=== PATIENT | female | born 1970 | race Caucasian/White ===

== ENCOUNTER → 2017-10-31 06:56 | Outpatient (CLI) | payer OTHER, SELFPAY ==
[2015-06-20 13:27] VITALS: BP 106/67
[2017-10-31 15:06] VITALS: BP 117/73; BMI 29.4
== END ==
PROVIDERS: Family Provider Family Medicine; PCP Family Medicine; Visit Provider Nurse Practitioner Women's Health
DX: Z12.4 Encounter for screening for malignant neoplasm of cervix (principal)

== ENCOUNTER 2017-12-04 17:00 | Emergency (ER) | payer OTHER, SELFPAY ==
[2017-12-04 17:01] VITALS: BP 139/100; PULSE 82; RESP 16; TEMP 36.2; O2SAT 96; BMI 30.1
--- NOTE | 2017-12-04 17:12 | CT_ITS ---
STUDY: CT ABDOMEN AND PELVIS WITHOUT CONTRAST REASON FOR EXAM: Female, 47 years old. Right flank pain RADIATION DOSAGE (If Supplied By Facility): CTDIvol = ( 9.89 ) mGy, DLP = ( 501.72 ) mGycm TECHNIQUE: Transaxial images were obtained from the dome of the diaphragm to the symphysis pubis without oral contrast, and without intravenous contrast. Sagittal and coronal images were reconstructed. Individualized dose optimization techniques were used for this CT. COMPARISON: None. FINDINGS: The visualized lung bases are unremarkable. The visualized portions of the heart are within normal limits. Normal liver. Normal gallbladder and extrahepatic biliary system. Normal spleen. Normal pancreas. Normal bilateral adrenal glands. There is a mild right hydronephrosis and hydroureter to the level of the UVJ. An obstructing calculus was not identified. There is a nonobstructing 3 mm calculus of the left kidney. Normal visualized stomach. Normal small intestine. Normal colon. The appendix is visualized and appears normal. There is a small calcified plaque of the abdominal aorta. Normal inferior vena cava. Normal retroperitoneum. Normal urinary bladder. An IUD is seen in the uterus. Adnexal structures are unremarkable. There is a small umbilical hernia containing fat. There is a bilateral L5 spondylolysis with no associated spondylolisthesis. CT/Abdomen/Pelvis without Cont IMPRESSION: 1. Mild right hydronephrosis and hydroureter to the level of the UVJ. An obstructing calculus was not identified. 2. Nonobstructing 3 mm calculus of the left kidney. 3. IUD present in the uterus. 4. Small fat-containing umbilical hernia. 5. Bilateral L5 spondylolysis with no associated spondylolisthesis. Electronically Signed: Alton Tanner MD at 18:48 EDT , Service support ,
[2017-12-04] MEDS: 0.9% Normal Saline 1,000 ML 250 ML IV (17:20)
[2017-12-04] MEDS: Ketorolac 30 MG/ML Syringe IV (17:24)
[2017-12-04] MEDS: Ondansetron 4 MG/2 ML Vial IV (17:24)
--- NOTE | 2017-12-04 17:37 | ED.DCSUM_ITS ---
- ER Visit Summary Date of Service: 12/04/17 Chief Complaint: Acute flank pain with urgency that started 2 hours prior to presentation. History of Present Illness: The patient is a 47 F Zentz with acute flank pain and urgency. Started 2 hours prior to presentation. She has pain with nausea. She cannot find a position of comfort. She has no similar past medical history. There is a family history of renal/ureterolithiasis. She denies history of renal or ureterolithiasis. She has no other complaints please read written note for complete detail Physical Examination: Patient appears uncomfortable. Blood pressure elevated 139/100. Head is atraumatic normocephalic. Pupils are equal round reactive. Extraocular muscles are intact. TMs are pearly white with landmarks noted. Nares patent with no drainage. Posterior pharynx without erythema or exudate. Uvula is midline. There is no dysphonia or dysphasia. Trachea is midline. There is no stridor with auscultation of the neck. Heart is regular without murmur, gallop or rub. S1 and S2 are normal. Lungs are clear to auscultation with good movement of air bilaterally. Abdomen is soft and nontender. There is no guarding or peritoneal findings. There is no palpable pulsatile mass. There is no abdominal bruit. Leo sign is negative. Negative Rovsing sign. There is no evidence of inguinal or umbilical hernia. Test Results: Urine is remarkable for 50-100 WBCs with no bacteria. CT is remarkable for hydroureter and nephrosis with no visualized stone. There is nonobstructing calculi on the left. Emergency Department Course and Treatment: IV was established and she was treated with 30 mg Toradol and [address] of the abdomen and pelvis without contrast was ordered as well as UA. Treatment Plan: Was reassessed and is pain-free. Since she has pyuria urine culture was sent and she received IV Rocephin and prescription for ciprofloxacin , [place], and told to take either 4 ibuprofen every 8 hours or 2 Aleve every 12 hours. She was referred to Dr. Kenneth Garcia. Disposition: Discharged home in stable and improved condition Impression: 1. Right flank pain secondary to nonvisualized ureteral calculus with hydroureter and nephrosis 2. Pyuria 3. Left renal calculus This note was generated with [employer] software. It may contain incorrect words, spelling, and punctuation that were not noted in review of the chart prior to signing ED Disposition - Plan for ED Patient: Disposition: Home or Assisted Living Chief Complaint: Flank Pain Instructions: ED Stone Renal W Colic Prescriptions: Hydrocodone Bitart/Apap 5-325 [[place] 5MG-325MG] 1 tablet PO Q6H PRN PRN 5 Days # 20 tablet PRN Reason: Pain Ciprofloxacin [Cipro] 500 mg PO BID #14 tab Referrals: Eddie Hernandez MD [Primary Care Provider] - Dewayne Garcia MD [STAFF PHYSICIAN] - 1 Week Additional Instructions: Your prescriptions were electronically transmitted to [facility] pharmacy
[2017-12-04 18:15] LABS: Bacteria 0 SEEN /hpf (None Seen); Mucous, Urine 0 SEEN /hpf (<or=2+); Red Blood Cells-Urine 0 SEEN /hpf (0-5)
[2017-12-04 18:16] LABS: Color, Urine Yellow (Yellow); Glucose, Dipstick Normal (Normal); Ketone-Dipstick Negative (Negative); Leukocyte Esterase-Dipstick 500 /ul (Negative); Nitrite-Dipstick Negative (Negative); Occult Blood-Urine 250 /ul (Negative); Protein-Dipstick 30 mg/dl (Negative); Specific Gravity, Urine 1.005 (1.002-1.030); Urine Bilirubin Dipstick Negative (Negative); Urine Clarity Sl. Cloudy (Clear); Urine Urobilinogen Normal (Normal)
[2017-12-04 18:23] LABS: Squamous Epithelial Cells - UA 0-5 SEEN /hpf (5-10); White Blood Cells 50-100 SEEN /hpf (0-5)
[2017-12-04 19:10] LABS: Absolute Lymphocyte Count 2.64 X10^3/ul (0.83-4.51); Absolute Neutrophil Count 11.2 X10^3/uL (2.0-7.7); Basophil# 0.04 X10^3/uL; Basophil% 0.3 % (0-1); Eosinophil# 0.13 X10^3/uL; Eosinophils% 0.9 % (0-5); Hematocrit 40.5 % (37-47); Hemoglobin 13.2 g/dl (12.0-15.0); Lymphocyte # 2.64 X10^3/ul (4.0); Lymphocyte % 17.7 % (19-41); Mean Corp Hgb Conc 32.6 g/gl (32-36); Mean Corpuscular Hgb 28.8 pg (27.0-32.0); Mean Corpuscular Volume 88.4 fL (81-99); Mean Platelet Vol. 10.7 fl (6.2-12.0); Monocyte# 0.88 X10^3/uL; Monocyte% 5.9 % (0-10); Neutrophil # 11.19 X10^3/uL (2.7-7.7); Neutrophil % 74.8 % (47-70); POSITIVE COUNT NO; POSITIVE DIFFERENTIAL NO; POSITIVE MORPHOLOGY NO; Platelet Count 359 K/mm3 (150-450); RBC Distribution Width CV 13.3 % (11.6-14.6); RBC Distribution Width SD 42.9 fl (35.1-43.9); Red Blood Count 4.58 M/mm3 (4.2-5.4); White Blood Count 14.9 K/mm3 (4.4-11.0)
[2017-12-04 20:19] VITALS: BP 132/78; PULSE 67; RESP 16; O2SAT 97
== END 2017-12-04 20:19 | disposition home or self-care (01) ==
PROVIDERS: Emergency Provider Emergency Medicine; Family Provider Family Medicine; PCP Family Medicine
DX: R10.9 Unspecified abdominal pain (principal); N13.4 Hydroureter; N20.2 Calculus of kidney with calculus of ureter; N04.9 Nephrotic syndrome with unspecified morphologic changes; N39.0 Urinary tract infection, site not specified
CPT/HCPCS: 74176; 81001; 85025; 87086; 87088; 87186; 96361; 96365; 96375; 99283; J7050; J0696; J2405

== ENCOUNTER → 2018-01-20 08:45 | Outpatient (CLI) | payer OTHER, SELFPAY ==
--- NOTE | 2018-01-20 08:47 | BI_ITS ---
MAMMOGRAPHY - BILATERAL SCREENING 3-D THEA SYNTHESIS REASON FOR EXAM: Female, 47 years old. Bilateral Screening 3-D tomosynthesis PERTINENT HISTORY: Family history with maternal aunt diagnosed at age 40 with breast cancer. No previous surgeries. She has gained weight since previous exam. TECHNIQUE: 2-D mammograms and 3-D Thea synthesis of the breast (s) were performed. CAD was performed. COMPARISON: March 05, 2014. FINDINGS: The breast composition is composed of scattered fibroglandular density. I now see an approximately 1 cm, partially ill-defined nodule within the anterior/subareolar left breast at the approximate 3:00 position located approximately 2 cm from the nipple base. Recommend further evaluation/characterization with sonography. There are no suspicious clustered pleomorphic calcifications. There are no secondary signs of malignancy. BI/SCREENING MAMM (CAD), BILAT IMPRESSION: Anterior left breast nodule as above. Sonographic characterization recommended. ASSESSMENT CATEGORY: BIRADS Category 0: Incomplete. Need additional imaging evaluation as above. A letter regarding these results will be sent to the patient by the facility within 30 days. FOLLOW UP RECOMMENDATION: Ultrasound Recommended. (I) Approximately 10% of breast cancers are not detected by mammography. A normal mammogram should not delay biopsy of a clinically suspicious abnormality. Electronically Signed: Ross Holly MD at 10:30 EDT , Service support ,
== END ==
PROVIDERS: Family Provider Family Medicine; PCP Family Medicine; Visit Provider Nurse Practitioner Women's Health
DX: Z12.31 Encounter for screening mammogram for malignant neoplasm of breast (principal)
CPT/HCPCS: 77063; 77067

== ENCOUNTER → 2018-01-23 07:45 | Outpatient (CLI) | payer OTHER, SELFPAY ==
--- NOTE | 2018-01-23 07:48 | US_ITS ---
STUDY: ULTRASOUND BREAST - LEFT REASON FOR EXAM: Female, 47 years old. Abnormal mammogram TECHNIQUE: Axial and longitudinal images of the LEFT breast were performed with a high resolution ultrasound transducer. COMPARISON: Mammogram from 01/20/2018 FINDINGS: LEFT Breast: At the 3:00 position, 1 cm from the nipple is a solid 0.9 x 1.0 x 0.6 and meter solid nonshadowing nonvascular well-defined nodule. This likely represents a fibroadenoma. Additionally, there is also a 0.4 x 0.4 x 0.2 cm cyst nearby. There is no architectural distortion. US/Breast Limited Unilateral IMPRESSION: Likely benign 1 cm fibroadenoma and benign simple cyst both located at 3:00, 1 cm from the nipple. ASSESSMENT CATEGORY: BIRADS Category 2: Benign. A letter regarding these results will be sent to the patient by the facility within 30 days. Electronically Signed: Mack Oliver MD at 8:47 EDT , Service support ,
== END ==
PROVIDERS: Family Provider Family Medicine; PCP Family Medicine; Visit Provider Nurse Practitioner Women's Health
DX: R92.8 Other abnormal and inconclusive findings on diagnostic imaging of breast (principal)
CPT/HCPCS: 76642

== ENCOUNTER → 2018-08-15 11:36 | Outpatient (CLI) | payer OTHER, SELFPAY ==
[2018-08-15 11:36] VITALS: BMI 29.4
[2018-08-15 14:35] LABS: Vitamin B12 604 pg/mL (211-911); Vitamin D,25 Hydroxy 21.9 ng/mL (29.95-100.01)
[2018-08-15 14:52] LABS: Anion Gap 11 (5-15); BUN 11 mg/dL (7-18); Calcium,Total 9.3 mg/dL (8.5-10.1); Chloride 102 mmol/L (98-107); Cholesterol 190 mg/dL (200); Creatinine, Serum 0.84 mg/dL (0.55-1.02); EST Glomerular Filtration Rate 77 mL/min (>60); Est Glom Filt Rate - Afr Amer 93 mL/min (>60); Free T3 2.7 pg/mL (2.18-3.98); Glucose 76 mg/dL (74-106); High Density Lipoprotein 46 mg/dL; Potassium 3.9 mmol/L (3.5-5.1); Sodium Level 139 mmol/L (136-145); T4 Free Direct 0.83 ng/dL (0.76-1.46); Thyroid Stim Hormone (TSH) 1.88 uIU/mL (0.358-3.74); Triglycerides 151 mg/dL; Very Low Density Lipoprotein 30 mg/dL (5-40)
== END ==
PROVIDERS: Family Provider Family Medicine; PCP Family Medicine; Visit Provider Family Medicine
DX: E55.9 Vitamin D deficiency, unspecified (principal); Z13.1 Encounter for screening for diabetes mellitus; E05.90 Thyrotoxicosis, unspecified without thyrotoxic crisis or storm; Z13.220 Encounter for screening for lipoid disorders; R53.83 Other fatigue
CPT/HCPCS: 36415; 80048; 80061; 82306; 82607; 84439; 84443; 84481

== ENCOUNTER → 2019-01-25 | Outpatient (CLI) | payer OTHER, SELFPAY ==
[2018-09-20 17:13] VITALS: BMI 29.4
== END | disposition home or self-care (01) ==
PROVIDERS: Family Provider Family Medicine; PCP Family Medicine; Referring Provider Family Medicine; Visit Provider Family Medicine
DX: R19.7 Diarrhea, unspecified (principal)
CPT/HCPCS: 80053; 84443; 85025; 85652

== ENCOUNTER → 2019-01-26 | Outpatient (CLI) | payer OTHER, SELFPAY ==
[2018-09-20 17:13] VITALS: BMI 29.4
== END | disposition home or self-care (01) ==
LOC: LABSPEC 12:39
PROVIDERS: Family Provider Family Medicine; PCP Family Medicine; Referring Provider Family Medicine; Visit Provider Family Medicine
DX: R19.7 Diarrhea, unspecified (principal)
CPT/HCPCS: 82274; 83630; 87177; 87209; 87493

== ENCOUNTER → 2019-04-20 | Outpatient (CLI) | payer OTHER, SELFPAY ==
[2018-09-20 17:13] VITALS: BMI 29.4
== END | disposition home or self-care (01) ==
LOC: LAB.FUTURE 16:50
PROVIDERS: Family Provider Family Medicine; PCP Family Medicine; Referring Provider Family Medicine; Visit Provider Family Medicine
DX: R19.7 Diarrhea, unspecified (principal)
CPT/HCPCS: 87493

== ENCOUNTER → 2019-10-15 16:30 | Outpatient (CLI) | payer OTHER, SELFPAY ==
[2018-09-20 17:13] VITALS: BMI 29.4
[2019-10-15 17:55] LABS: Vitamin D,25 Hydroxy 16.1 ng/mL (29.95-100.01)
[2019-10-15 18:06] LABS: Anion Gap 4 (5-15); BUN 17 mg/dL (7-18); BUN/Creat Ratio 18.9 RATIO (10-20); Calcium,Total 9.9 mg/dL (8.5-10.1); Chloride 103 mmol/L (98-107); Cholesterol 234 mg/dL (200); EST Glomerular Filtration Rate 71 mL/min (>60); Est Glom Filt Rate - Afr Amer 86 mL/min (>60); Glucose 84 mg/dL (74-106); High Density Lipoprotein 54 mg/dL; Potassium 3.9 mmol/L (3.5-5.1); Sodium Level 137 mmol/L (136-145); Thyroid Stim Hormone (TSH) 1.82 uIU/mL (0.358-3.74); Triglycerides 194 mg/dL; Very Low Density Lipoprotein 39 mg/dL (5-40)
== END ==
PROVIDERS: PCP Family Medicine; Visit Provider Family Medicine
DX: E03.9 Hypothyroidism, unspecified (principal); E55.9 Vitamin D deficiency, unspecified; Z13.1 Encounter for screening for diabetes mellitus; Z13.220 Encounter for screening for lipoid disorders
CPT/HCPCS: 36415; 80048; 80061; 82306; 84443

== ENCOUNTER → 2019-10-25 16:43 | Outpatient (CLI) | payer OTHER, SELFPAY ==
[2018-09-20 17:13] VITALS: BMI 29.4
--- NOTE | 2019-10-25 16:45 | BI_ITS ---
MAMMOGRAPHY - BILATERAL SCREENING REASON FOR EXAM: Female, 48 years old. Routine annual screening examination. PERTINENT HISTORY: Aunt with breast cancer. TECHNIQUE: Digital bilateral breast thea (3D mammographic acquisition) in the CC and MLO projections. 2-D mediolateral oblique (MLO) and craniocaudad (CC) views of both breasts were obtained. CAD: Full Field Digital Mammography with Computer Added Detection was performed. COMPARISON: Comparison is made with prior examination dated January 20, 2018 and March 05, 2014. FINDINGS: Breast Composition: The breasts are heterogeneously dense, which may obscure small masses. There are no dominant masses or suspicious calcifications. Stable 9 mm x 6.7 mm well-defined nodule in the anterior lateral retroareolar region of the left breast. This is unchanged. No other significant abnormalities are identified. There has been no significant change since the prior study. BI/SCREEN MAMM (CAD) W/THEA BILAT IMPRESSION: Stable bilateral screening mammogram. Yearly follow-up mammogram recommended. (A) ASSESSMENT CATEGORY: BIRADS Category 2: Benign. A letter regarding these results will be sent to the patient by the facility within 30 days. Approximately 10% of breast cancers are not detected by mammography. A normal mammogram should not delay biopsy of a clinically suspicious abnormality. [id number] Electronically Signed: Vik Kingston, at 15:01 EST , Service support ,
== END ==
PROVIDERS: PCP Family Medicine; Referring Provider Family Medicine; Visit Provider Family Medicine
DX: Z12.31 Encounter for screening mammogram for malignant neoplasm of breast (principal); Z80.3 Family history of malignant neoplasm of breast
CPT/HCPCS: 77063; 77067

== ENCOUNTER → 2020-04-19 09:42 | Outpatient (CLI) | payer OTHER, SELFPAY ==
[2018-09-20 17:13] VITALS: BMI 29.4
[2020-04-19 10:34] LABS: Vitamin D,25 Hydroxy 68.4 ng/mL
== END ==
PROVIDERS: PCP Family Medicine; Referring Provider Family Medicine; Visit Provider Family Medicine
DX: E55.9 Vitamin D deficiency, unspecified (principal)
CPT/HCPCS: 36415; 82306

== ENCOUNTER → 2020-11-10 12:59 | Outpatient (CLI) | payer OTHER, SELFPAY ==
[2020-09-08 11:08] VITALS: BMI 34.2
--- NOTE | 2020-11-10 13:01 | BI_ITS ---
MAMMOGRAPHY - BILATERAL SCREENING REASON FOR EXAM: Female, 49 years old. Routine annual screening examination. PERTINENT HISTORY: Aunt with breast cancer. TECHNIQUE: Digital bilateral breast thea (3D mammographic acquisition) in the CC and MLO projections. 2-D mediolateral oblique (MLO) and craniocaudad (CC) views of both breasts were obtained. CAD: Full Field Digital Mammography with Computer Added Detection was performed. COMPARISON: Comparison is made with prior examination dated 10/25/2019 and 01/20/2018. FINDINGS: Breast Composition: The breasts are heterogeneously dense, which may obscure small masses. There are no dominant masses or suspicious calcifications. Stable 9 mm x 6.7 mm well-defined nodule in the anterior lateral retroareolar region of the left. No other significant abnormalities are identified. There has been no significant change since the prior study. BI/SCRN MAMM (CAD)W/THEA BILAT IMPRESSION: Stable bilateral screening mammogram. Yearly follow-up mammogram recommended. (A) ASSESSMENT CATEGORY: BIRADS Category 2: Benign. A letter regarding these results will be sent to the patient by the facility within 30 days. Approximately 10% of breast cancers are not detected by mammography. A normal mammogram should not delay biopsy of a clinically suspicious abnormality. [id number] Electronically Signed: Vik Kingston MD at 14:01 EST , Service support ,
== END ==
PROVIDERS: PCP Family Medicine; Visit Provider Nurse Practitioner Women's Health
DX: Z12.31 Encounter for screening mammogram for malignant neoplasm of breast (principal); Z80.3 Family history of malignant neoplasm of breast
CPT/HCPCS: 77063; 77067

== ENCOUNTER → 2020-12-10 10:17 | Outpatient (CLI) | payer OTHER, SELFPAY ==
[2020-09-08 11:08] VITALS: BMI 34.2
[2020-12-10 10:48] LABS: Erythrocyte Sedimentation Rate 13 mm/hr (0-30)
[2020-12-10 10:50] LABS: Absolute Lymphocyte Count 1.86 X10^3/uL (0.83-4.51); Absolute Neutrophil Count 7.5 X10^3/uL (2.0-7.7); Basophil# 0.06 X10^3/uL; Basophil% 0.6 % (0-1); Hematocrit 43.9 % (37-47); Hemoglobin 14.2 g/dL (12.0-15.0); Lymphocyte # 1.86 X10^3/ul (4.0); Lymphocyte % 18.3 % (19-41); Mean Corp Hgb Conc 32.3 g/dL (32-36); Mean Corpuscular Hgb 29.2 pg (27.0-32.0); Mean Corpuscular Volume 90.3 fL (81-99); Mean Platelet Vol. 10.4 fl (6.2-12.0); Monocyte# 0.61 X10^3/uL; NRBC Flagged by Analyzer 0 % (0-5); Neutrophil # 7.46 X10^3/uL (2.7-7.7); Neutrophil % 73.2 % (47-70); Platelet Count 380 K/mm3 (150-450); RBC Distribution Width CV 13.4 % (11.6-14.6); RBC Distribution Width SD 44.8 fl (35.1-43.9); Red Blood Count 4.86 M/mm3 (4.2-5.4); White Blood Count 10.2 K/mm3 (4.4-11.0)
[2020-12-10 11:44] LABS: ALB/GLOB Ratio 0.9 RATIO (0.9-2.4); AST(SGOT) 24 U/L (15-37); Alanine Aminotransfer ALT/SGPT 43 U/L (13-56); Alkaline Phosphatase 97 U/L (45-117); Anion Gap 5 (5-15); BUN 15 mg/dL (7-18); BUN/Creat Ratio 15.8 RATIO (10-20); CRP 3.29 mg/L (0.0-3.0); Calcium,Total 9.6 mg/dL (8.5-10.1); Chloride 101 mmol/L (98-107); Cholesterol 246 mg/dL (200); Creatinine, Serum 0.95 mg/dL (0.55-1.02); EST Glomerular Filtration Rate 66 mL/min (>60); Est Glom Filt Rate - Afr Amer 80 mL/min (>60); Globulin 4.4 g/dL (2.2-4.2); Glucose 88 mg/dL (74-106); High Density Lipoprotein 57 mg/dL; Potassium 4.4 mmol/L (3.5-5.1); Protein, Total 8.4 g/dL (6.4-8.2); Rheumatoid Factor < 10.0 IU/mL (<15); Sodium Level 137 mmol/L (136-145); Triglycerides 175 mg/dL; Very Low Density Lipoprotein 35 mg/dL (5-40)
[2020-12-11 12:08] LABS: ANTINUCLEAR ANTIBODIES DIRECT Positive (Negative); Anti-Centromere B Ab <0.2 AI (0.0-0.9); Anti-Chromatin 0.2 AI (0.0-0.9); Anti-Jo <0.2 AI (0.0-0.9); Anti-Scleroderma-70 AB <0.2 AI (0.0-0.9); RNP Ab <0.2 AI (0.0-0.9); SJOGREN'S Anti-SS-A test < 0.2 AI (0.0-0.9); SJOGREN'S Anti-SS-B test < 0.2 AI (0.0-0.9); Smith Ab 0.2 AI (0.0-0.9)
[2020-12-11 14:06] LABS: Anti-dsDNA Ab 12 IU/mL (0-9)
[2020-12-12 13:42] LABS: CCP IgG Antibodies 9 units (0-19)
== END ==
PROVIDERS: PCP Family Medicine; Referring Provider Family Medicine; Visit Provider Family Medicine
DX: Z00.00 Encounter for general adult medical examination without abnormal findings (principal); M25.50 Pain in unspecified joint; L40.9 Psoriasis, unspecified; E78.5 Hyperlipidemia, unspecified; Z51.81 Encounter for therapeutic drug level monitoring
CPT/HCPCS: 36415; 80053; 80061; 85025; 85652; 86038; 86140; 86200; 86225; 86235; 86431

== ENCOUNTER 2021-12-15 07:31 | Outpatient (CLI) | payer OTHER, SELFPAY ==
--- NOTE | 2021-12-15 07:34 | BI_ITS ---
MAMMOGRAPHY - BILATERAL SCREENING REASON FOR EXAM: Female, 51 years old. Routine annual screening examination. PERTINENT HISTORY: Aunt with breast cancer. TECHNIQUE: Digital bilateral breast thea (3D mammographic acquisition) in the CC and MLO projections. 2-D mediolateral oblique (MLO) and craniocaudad (CC) views of both breasts were obtained. CAD: Full Field Digital Mammography with Computer Added Detection was performed. COMPARISON: Comparison is made with prior examination dated 11/10/2020 and 10/25/2019. FINDINGS: Breast Composition: The breasts are heterogeneously dense, which may obscure small masses. There are no dominant masses or suspicious calcifications. Stable 9 mm x 6.5 mm well-defined nodule in the anterior lateral retroareolar region of the left breast. No other significant abnormalities are identified. There has been no significant change since the prior study. BI/SCRN MAMM (CAD)W/THEA BILAT IMPRESSION: Stable bilateral screening mammogram. Yearly follow-up mammogram recommended. (A) ASSESSMENT CATEGORY: BIRADS Category 2: Benign. A letter regarding these results will be sent to the patient by the facility within 30 days. Approximately 10% of breast cancers are not detected by mammography. A normal mammogram should not delay biopsy of a clinically suspicious abnormality. [id number] Electronically Signed: Vik Kingston MD at 8:34 EDT ,
== END 2021-12-15 23:59 | disposition home or self-care (01) ==
LOC: OPBI 07:33
PROVIDERS: PCP Family Medicine; Visit Provider Nurse Practitioner Women's Health
DX: Z12.31 Encounter for screening mammogram for malignant neoplasm of breast (principal)
CPT/HCPCS: 77063; 77067

== ENCOUNTER 2022-10-19 03:57 | Emergency (ER) | payer OTHER, SELFPAY ==
[2022-10-19 03:58] VITALS: BP 144/93; PULSE 74; RESP 16; TEMP 36.4; O2SAT 99; BMI 33.1
--- NOTE | 2022-10-19 04:57 | EX.ED.DYSGE1 ---
HPI History of Present Illness Chief Complaint: Back Informant: patient Narrative Narrative: Patient is a 51-year-old female presenting with recurrent episodes of pain shooting down her right arm. Patient notes she recently started a job as much more physical is been having some issues since. She notes she is doing a lot more bending and twisting. She has some milder right thoracic back pain is getting sharp shooting pain going from her elbow and radiating to her middle finger. She notes sometimes she does have some pain to her ring finger as well but is not as bad. She was seen at urgent care on when she had an episode of this that woke her up in her sleep. She is put on a 2-week course of prednisone as well as Flexeril. While she is on the steroid she felt much better. She admitted that about a week ago. She has a Flexeril also helps but makes her tired in the morning that she needs to work. She notes she did not take any last night. She did not take any NSAIDs or Tylenol for pain prior to arrival. She states the pain woke her from sleep again tonight and she is miserable. She cannot find a position of comfort. She has had an MRI in the past of her neck and was told that she has herniated disc in her neck. In addition she has not seen orthopedics or her primary care doctor for the symptoms yet. She denies any associated numbness or weakness of her hands. Denies any trauma or injury. [facility] Medical History Anxiety Back pain Hemorrhoids Kidney stone Knee pain Home Medications fluoxetine 40 mg capsule 60 mg DAILY 10/19/22 [History Last Taken Unknown] prednisone 20 mg tablet 40 mg PO DAILY #8 TABLETS 10/19/22 [Rx Last Taken Unknown] tizanidine 4 mg tablet (Zanaflex) 4 mg PO Q8H PRN muscle spasticity #20 tabs 10/19/22 [Rx Last Taken Unknown] Allergy/AdvReac Type Severity Reaction Status Date / Time No Known Allergies Allergy Verified 10/19/22 04:02 Family History Father No problems noted. Aunt Breast cancer Surgical History right ankle surgery Social History Smoking Status: Never smoker alcohol intake: never substance use type: does not use caffeine: No what type of physical activity do you participate in: none seatbelt use: always do you feel safe at home: Yes additional social history: [employer] for [employer] Patient works at [employer] ROS ROS ED Constitutional Constitutional ED: Denies chills or fever(s) Eyes Eyes: Denies change in vision ENT ENT ED: Denies sore throat Cardiovascular Cardiovascular: Denies chest pain Respiratory/Chest Respiratory/Chest: Denies cough or dyspnea Gastrointestinal Gastrointestinal: Denies nausea or vomiting Musculoskeletal Musculoskeletal: Reports back pain and other Details: Right arm pain Integumentary Denies Abrasions or rash Neurologic Neurologic: Denies paresthesias or weakness Psychiatric Psychiatric: Denies anxiety EXAM Physical Exam Const Vital Signs: 10/19/22 03:58 Temperature 97.6 F L Temperature Source Temporal Pulse Rate 74 Respiratory Rate 16 Blood Pressure 144/93 H Blood Pressure Mean 110 Pulse Ox 99 Oxygen Delivery Method Room Air Positive well nourished and well developed General Appearance ED: well developed and NAD HEENT Reports moist mucous membranes Eyes PERRL and EOMs intact bilaterally Neck supple and no JVD Chest Wall inspection of chest normal and palpation of chest normal Resp normal respiratory effort and clear to auscultation bilaterally Cardio regular rate, regular rhythm and no murmurs GI non-distended Back/Spine Back/Spine Narrative: No significant paraspinal muscle tenderness. No midline neck tenderness. Normal range of motion of the neck. Patient has some mild diffuse tenderness over the left trapezius but no significant spasm appreciated. Thoracic Spine / Upper Back: paraspinal muscle tenderness; Negative for thoracic spinal tenderness Extremity normal to inspection Extremity Narrative: Normal range of motion of the arm. Not able to reproduce the pain on exam. Patient able to make okay sign, thumbs up, fist, AB duct and adduct the fingers without any difficulty. Intact sensation in all dermatomes. No reproducible pain with palpation of the elbow. General Extremety ED: Negative for edema or tenderness General Extremity: Negative for edema Neuro oriented x3, CN's II-XII intact bilaterally and no sensory deficits noted Motor Exam: strength 5/5 throughout; Negative for general weakness Psych mental status grossly normal Skin no rashes or lesions noted MDM MDM MDM Narrative Medical decision making narrative: Patient is evaluated for atraumatic right shoulder pain as well as sharp pain going from her elbow to her hand. I suspect there is a component of muscle spasm in her back and likely either radiculopathy or a peripherally pinched nerve. Patient will be placed back on a burst of steroids and switch to tizanidine as she finds Flexeril quite sedating. Counseled that she can break this in half as well. Is given referral for orthopedics. At this time I do not think she has any limb threatening emergency. She has good vascular blood flow with no focal neurologic deficits. We discharged for outpatient follow-up. Patient is given versus a prednisone as well as a dose of naproxen in the emergency room. Discharge Plan Triage Chief Complaint: Back ED Provider: Emperatriz Garcia Dx/Rx/DC Orders Instructions: ED Back Spasm, No Trauma, ED Radiculopathy, Cervical Prescriptions: New tizanidine [Zanaflex] 4 mg tablet 4 mg PO Q8H PRN (Reason: muscle spasticity) Qty: 20 0RF prednisone 20 mg tablet 40 mg PO DAILY Qty: 8 0RF No Action fluoxetine 40 mg capsule 60 mg DAILY Label Comments: TAKE 1 CAPSULE BY MOUTH ONCE DAILY Primary Care Provider: Janell Penn Referrals: Janell Penn DO [Primary Care Provider] - Duane Fernandez MD [Med Staff - Active Staff] - As soon as possible Disposition Disposition: Home, Self Care
[2022-10-19] MEDS: Naproxen 250 MG Tablet 500 MG PO (05:11)
[2022-10-19] MEDS: predniSONE 20 MG Tablet 60 MG PO (05:12)
== END 2022-10-19 05:21 | disposition home or self-care (01) ==
PROVIDERS: Emergency Provider Emergency Medicine; PCP Family Medicine; Visit Provider Emergency Medicine
DX: M54.12 Radiculopathy, cervical region (principal); M62.830 Muscle spasm of back; F41.9 Anxiety disorder, unspecified; Z79.899 Other long term (current) drug therapy
CPT/HCPCS: 99283

== ENCOUNTER → 2022-11-19 | Outpatient (CLI) | payer OTHER, SELFPAY ==
--- NOTE | 2022-11-19 11:00 | MRI_ITS ---
STUDY: MRI RIGHT SHOULDER REASON FOR EXAM: Female, 51 years old. Impingement. Pain. TECHNIQUE: Standardized fat and water weighted pulse sequences were obtained in all 3 orthogonal planes. COMPARISON: Shoulder x-rays dated November 15, 2022. FINDINGS: Supraspinatus tendinosis with slight increased signal tear (coronal series 5 images 9-13). Infraspinatus tendinosis without a full-thickness tear (coronal series 5 images 5-8). Subscapularis tendinosis with thickening and increased signal intensity without a full-thickness tear (axial series 6 images 7-12). Normal teres minor tendon. Normal supraspinatus muscle. Normal infraspinatus muscle. Normal subscapularis muscle. Normal teres minor muscle. Mild thinning of the articular cartilage of the glenohumeral joint with a small glenohumeral joint effusion (axial series 6 images 7-12). Normal humeral head and visualized proximal humerus. Normal biceps labral complex. Normal intracapsular long biceps tendon. Nondisplaced superior labral tear (coronal series 5 images 7-T10). Normal capsulo- ligamentous complex. Normal rotator interval. Bone marrow edema in the distal clavicle and adjacent acromion with a small AC joint effusion. Findings compatible with stress-related changes. AC joint hypertrophy with narrowing of the subacromial space (coronal series 5 images 7-14). There is a Type II morphology (curved), with a neutral orientation. There is no subacromial-subdeltoid bursal fluid. Normal visualized coracohumeral and coracoacromial ligaments. Normal quadrilateral space. Normal axillary space. Normal deltoid muscle. Normal trapezius muscle. MRI/Upper Ext Joint Only(Routine) IMPRESSION: Supraspinatus, infraspinatus and subscapularis tendinosis. No full-thickness tear. Mild arthrosis of the glenohumeral joint. Nondisplaced superior labral tear. Stress-related changes in the distal clavicle and adjacent acromion with bone marrow edema as described. Small AC joint effusion with AC joint hypertrophy and narrowing of the subacromial space. Small glenohumeral joint effusion. Electronically Signed: Rohit Swan, at 13:46 EST ,
== END | disposition home or self-care (01) ==
LOC: MRI 10:51
PROVIDERS: PCP Family Medicine; Referring Provider Orthopaedic Surgery; Visit Provider Orthopaedic Surgery
DX: M25.811 Other specified joint disorders, right shoulder (principal)
CPT/HCPCS: 73221

== ENCOUNTER 2022-11-29 10:00 | Outpatient (RCR) | payer OTHER, SELFPAY ==
--- NOTE | 2022-11-29 12:17 | HP.PTEVAL ---
Patient's Visit Information JOEY LION is a 52 year old F referred to Physical Therapy by Dr. Abdifatah Madrid DO with a diagnosis of Shoulder Pain. Date of Evaluation: 11/29/22 Physical Therapist: Ana Izquierdo DPT - Visit Plan Frequency: 2x /Week Duration: 4 Weeks Plan: Focus on scapular strength/stabilization due to impingement. HEP Given IE: Posture correction, scapular retraction, bilateral ER with GTB - Subjective Patient reports that she was off work for 2 weeks from chiro for her neck issues- shoulder issues she saw Dr. Silveira and put her on limited restrictions so she is not having a lot of issues. She woke up this morning with slight N/T in her right hand. 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 Maneuvering and reaching overhead and pulling them down. She is back to work on restrictions of not reaching above her head- she has them for one more week. She is still seeing chiro for her neck- adjustments only. She started her job Aug 23 and 3 weeks in is when she started having issues. Pain shooting down the right arm to the middle/ring finger. Right hand dominate. 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 Her symptoms now are when she puts her arm in impingement positions its a achy pain in the biceps and Neftali horse in the neck. N/T in her fingers when she slept on that- but it went away. Worst: 1/10 in the last week Best: 0/10. No NINO, blurred vision or dizziness. Sleep: not disturbed- right side sleeper. She is more sedentary and does not have a normal exercise routine. - Objective Posture: mild guarding of the right UE. Palpation: not tender to touch. ROM: Cervical: WNL, Elbow/Wrist/Hand: WFL, Shoulder: WFL with pain at end range flexion, abd and IR behind the back Strength: Scap: fair, Shoulder Isometric: 4+/5 without pain, Elbow: isometric: 4+/5, Remote Broadcast Technician: equal - Special Tests R Shoulder Lift Off Test - Subscapular Tear: Positive R Shoulder Empty Can - SS: Positive R Shoulder Belly Press - SupScap: Positive R Shoulder Neer - Impingement: Positive R Shoulder Moralez Yamil - Impingement: Positive - Balance/Special Test Scores Quick DASH Score: 13.6350 - Goals Goal 1:: Patient will be I with HEP and progression Goal Time Frame: 4-6 Weeks Goal 2:: Patient will maintain proper posture t/o tx session to demo increased scap s/s Goal Time Frame: 4-6 Weeks Goal 3:: Patient will reach overhead without pain Goal Time Frame: 4-6 Weeks Goal 4:: Patient will report 80% improvement Goal Time Frame: 4-6 Weeks - Rehabilitation Potential Physical Therapy Diagnosis: Patient presents with hypomobility- she has decreased pain free ROM, UE and scapular s/s and muscular endurance leading to inability to reach and perform ADL's without pain. - Anticipated Interventions Patient/Client Instruction: Educate patient on: Benefits of Fitness Program Therapeutic Exercise to Include: Strength training, Endurance training, Balance training, Coordination, Agility training, Body mechanics, Postural training, Flexibilty training, Gait and locomotor training, Neuromotor development, Dynamic Lumbar Stabilization, Scapular Strength/Stabilization For the Purpose of:: To improve muscle performance and motor function Thank you for the opportunity to evaluate your patient. For Medicare and Medicare HMO plans, please review the plan of care and approve it. It will need to be FAXED BACK to us at [phone] for Medicare purposes. For Medicare only, by signing this I certify the plan of care. Please let me know if there are questions or concerns regarding this plan of care. Physician Signature: Date:
--- NOTE | 2023-04-11 12:48 | HP.PT.NRP ---
Patient Information Patient Information: JOEY LION was seen in my office for initial evaluation on 11/29/22. The following Plan of Care was established for this patient: POC Established Initial Frequency: 2x /Week Initial Duration: 4 Weeks Anticipated Interventions Patient/Client Instruction: Educate patient on: Benefits of Fitness Program Therapeutic Exercise to Include: Strength training, Endurance training, Balance training, Coordination, Agility training, Body mechanics, Postural training, Flexibilty training, Gait and locomotor training, Neuromotor development, Dynamic Lumbar Stabilization and Scapular Strength/Stabilization For the Purpose of:: To improve muscle performance and motor function Last Seen Last Seen: This patient was last seen in our office . Pertinent comments regarding their Physical therapy will appear below: Patient has not attended PT since IE- appropriate to be d/c and return to MD as needed At this point I will be discontinuing this patient from physical therapy. I would be happy to see this patient again in the future if found appropriate by the physician. Thank you! Ana Izquierdo, ANAT Balance/Gait/Functional tests Balance/Special Test Scores Quick DASH Score: [phone]
== END 2022-11-29 19:00 | disposition home or self-care (01) ==
LOC: PT 10:00
PROVIDERS: PCP Family Medicine; Referring Provider Orthopaedic Surgery; Visit Provider Orthopaedic Surgery
DX: M25.811 Other specified joint disorders, right shoulder (principal); M50.30 Other cervical disc degeneration, unspecified cervical region
CPT/HCPCS: 97110; 97162

== ENCOUNTER 2023-01-16 09:32 | Emergency (ER) | payer OTHER, SELFPAY ==
[2023-01-16 09:33] VITALS: BP 128/93; PULSE 79; RESP 14; TEMP 36.4; O2SAT 96; BMI 32.2
--- NOTE | 2023-01-16 10:00 | EX.ED.DYSGE1 ---
HPI History of Present Illness Chief Complaint: Ear Problem Detail of Chief Complaint: Left ear pain Informant: patient Onset/Context/Timing Onset: Weeks Context: Gradual Onset Narrative Narrative: Patient presents secondary to continued left ear pain. She developed bilateral ear pain and sinus congestion earlier this month. She was seen at urgent care on the and diagnosed with bilateral ear infection and sinusitis. She was placed on Augmentin. She was seen again at the urgent care on the because of continued symptoms primarily in her left ear. She was switched from Augmentin to Levaquin. She presents today secondary to continued left ear pain and muffled hearing. No fever or chills. [facility] Medical History Acute otitis media, left Anxiety Back pain Yomaira's thyroiditis Hemorrhoids Iatrogenic hyperthyroidism Kidney stone Knee pain Home Medications fluoxetine 40 mg capsule 60 mg DAILY 10/19/22 [History Last Taken Unknown] levonorgestrel 21 mcg/24 hours (8 yrs) 52 mg intrauterine device (Mirena) 1 device intrauterine ONCE 11/15/22 [History Last Taken Unknown] levofloxacin 500 mg tablet 500 mg PO DAILY #10 tabs 01/12/23 [Rx Last Taken Unknown] Allergy/AdvReac Type Severity Reaction Status Date / Time No Known Allergies Allergy Verified 01/16/23 09:34 Family History Father No problems noted. Aunt Breast cancer Surgical History right ankle surgery Social History Smoking Status: Never smoker alcohol intake: never substance use type: does not use caffeine: No what type of physical activity do you participate in: none seatbelt use: always do you feel safe at home: Yes additional social history: [place]- Works for [employer] Patient works at [employer] ROS ROS ED Constitutional Constitutional ED: Denies chills or fever(s) Eyes Eyes: Denies change in vision or discharge from eye(s) ENT ENT ED: Reports ear pain left; Denies discharge from eye(s), rhinorrhea or sore throat Cardiovascular Cardiovascular: Denies chest pain Respiratory/Chest Respiratory/Chest: Denies cough or dyspnea Gastrointestinal Gastrointestinal: Denies abdominal pain, nausea or vomiting Musculoskeletal Musculoskeletal: Denies back pain or extremity pain Integumentary Denies Abrasions or rash Neurologic Neurologic: Denies headache(s) or weakness Psychiatric Psychiatric: Denies anxiety or depression Allergic/Immunologic Allergic/Immunologic ED: Denies lip swelling or urticaria EXAM Physical Exam Const Vital Signs: 01/16/23 09:33 Temperature 97.6 F L Temperature Source Temporal Pulse Rate 79 Respiratory Rate 14 Blood Pressure 128/93 H Blood Pressure Mean 104 Pulse Ox 96 Oxygen Delivery Method Room Air Positive well nourished and well developed General Appearance ED: well developed HEENT Reports moist mucous membranes HEENT Narrative: Left external ear canal is erythematous and slightly swollen. Slight bulging noted to the left TM with clear appearing fluid. Right TM is normal. No tenderness over the mastoid air cells. Eyes PERRL Neck no lymphadenopathy Chest Wall inspection of chest normal and palpation of chest normal Resp normal respiratory effort and clear to auscultation bilaterally Cardio regular rate and regular rhythm GI normal to inspection, nondistended, normoactive bowel sounds Extremity normal to inspection Neuro oriented x3 and no sensory deficits noted Motor Exam: strength 5/5 throughout Skin no rashes or lesions noted MDM MDM MDM Narrative Medical decision making narrative: I did recommend the patient take antihistamines to help decrease the fluid behind the TM which may help with some of the pressure. Her external ear canal appears infected. She was started on Cipro drops. I do feel that the inner ear infection would be better served with the Augmentin and asked her to switch back to that antibiotic. She will be referred to ENT if not improving. Discharge Plan Triage Chief Complaint: Ear Problem ED Provider: Kaity Fitzgerald Dx/Rx/DC Orders Clinical Impression: Left otitis externa, Acute otitis media, left Instructions: ED Otitis Media Antibiotic ..., ED External Ear Infection (Adult) Prescriptions: No Action Mirena 21 mcg/24 hours (8 yrs) 52 mg intrauterine device 1 device intrauterine ONCE Rx Instructions: as a single dose levofloxacin 500 mg tablet 500 mg PO DAILY Qty: 10 0RF fluoxetine 40 mg capsule 60 mg DAILY Label Comments: TAKE 1 CAPSULE BY MOUTH ONCE DAILY Primary Care Provider: Janell Penn Referrals: Tone Welch MD [Med Staff - Active Staff] - 10-14 Days if not better Janell Penn, [Primary Care Provider] - Activity Restrictions/Additional Instructions: As discussed, please switch back to the Augmentin antibiotic orally. You will be given Cipro eardrops. Placed 2 drops in your ear twice a day for the next week. Disposition Disposition: Home, Self Care
[2023-01-16] MEDS: Ciprofloxacin 0.3% 2.5ml Bottle 2 DRP LEFT EAR (10:16)
== END 2023-01-16 10:22 | disposition home or self-care (01) ==
PROVIDERS: Emergency Provider Emergency Medicine; PCP Family Medicine; Visit Provider Emergency Medicine
DX: H66.92 Otitis media, unspecified, left ear (principal); H60.92 Unspecified otitis externa, left ear
CPT/HCPCS: 99282

== ENCOUNTER → 2023-03-10 | Outpatient (CLI) | payer OTHER, SELFPAY ==
--- NOTE | 2023-03-10 08:09 | BI_ITS ---
MAMMOGRAPHY - BILATERAL SCREENING REASON FOR EXAM: Female, 52 years old. Routine annual screening examination. PERTINENT HISTORY: Aunts with breast cancer. TECHNIQUE: Digital bilateral breast thea (3D mammographic acquisition) in the CC and MLO projections. 2-D mediolateral oblique (MLO) and craniocaudad (CC) views of both breasts were obtained. CAD: Full Field Digital Mammography with Computer Added Detection was performed. COMPARISON: Comparison is made with prior study dated December 15, 2021 and November 10, 2020. FINDINGS: Breast Composition: The breasts are heterogeneously dense, which may obscure small masses. There are no dominant masses or suspicious calcifications. Stable 9 mm x 6.5 mm well-defined nodule in the anterior lateral retroareolar region of the left breast. Small benign-appearing bilateral axillary lymph nodes. No other significant abnormalities are identified. There has been no significant change since the prior study. BI/SCRN MAMM (CAD)W/THEA BILAT IMPRESSION: Stable bilateral screening mammogram. Yearly follow-up mammogram recommended. (A) ASSESSMENT CATEGORY: BIRADS Category 2: Benign. A letter regarding these results will be sent to the patient by the facility within 30 days. Approximately 10% of breast cancers are not detected by mammography. A normal mammogram should not delay biopsy of a clinically suspicious abnormality. [id number] Electronically Signed: Vik Kingston MD at 8:59 EDT ,
== END | disposition home or self-care (01) ==
LOC: OPBI 08:08
PROVIDERS: PCP Family Medicine; Referring Provider Family Medicine; Visit Provider Family Medicine
DX: Z12.31 Encounter for screening mammogram for malignant neoplasm of breast (principal); Z80.3 Family history of malignant neoplasm of breast
CPT/HCPCS: 77063; 77067

== ENCOUNTER 2023-06-16 13:35 | Observation (INO) | payer OTHER, SELFPAY ==
[2023-06-16] VITALS (8 sets, daily range): BP systolic 106–147; BP diastolic 67–100; PULSE 70–79; RESP 12–16; TEMP 36.4–36.8; O2SAT 94–98; BMI 32.1; BMI 31.9
--- NOTE | 2023-06-16 13:42 | CT_ITS ---
We are attempting to reach an attending provider to discuss findings. An addendum with communication details will be sent when the communication is complete. INDICATION: CONFUSION, HEADACHE EXAMINATION: CT BRAIN - CT Head Stroke Protocol W/O Contrast Injection TECHNIQUE: Multiple axial images were obtained of the head without intravenous contrast. A radiation dose optimization technique was used for this scan. IV Contrast dosage and agent: None. RADIATION DOSAGE (If Supplied By Facility): CTDIvol = ( ) mGy, DLP = ( ) mGycm COMPARISON: No prior examinations are available at this time. FINDINGS: BRAIN PARENCHYMA: No intra- or extra-axial hemorrhage. No evidence of acute infarct. No intracranial mass or mass effect. There is preservation of the morales/white matter interface. Posterior fossa structures are unremarkable. CSF SPACES: Appropriate for age. No hydrocephalus. Basal cisterns are patent. CALVARIUM, SKULL BASE, PARANASAL SINUSES AND MASTOID AIR CELLS: Mild mucosal thickening of the right maxillary sinus. No discrete lytic or blastic abnormalities. ORBITS: Both globes, extraocular muscles, optic nerves and retrobulbar fat appear unremarkable. ASPECTS Score for Acute Strokes: 10 CT/STROKE Brain/Head without Cont IMPRESSION: No acute intracranial process. Electronically Signed: Antwan Vela MD at 14:21 EDT ,
--- NOTE | 2023-06-16 13:50 | CT_ITS ---
INDICATION: Headache and expressive aphasia. EXAMINATION: CT BRAIN WITH CONTRAST TECHNIQUE: Noncontrast axial images were obtained of the brain. Subsequently, routine carotid CT angiogram protocol was performed without and with IV contrast. In addition, images were obtained of the [place]. NASCET criteria using the distal ICAs for comparison were used for evaluation of stenoses. 3D reconstructions were reviewed. A radiation dose optimization technique was used for this scan. IV Contrast dosage and agent: 100 cc of Isovue-370 COMPARISON: No prior examinations are available for comparison. FINDINGS: --CTA NECK: AORTIC ARCH AND BRANCHES: Normal anatomy, patent. RIGHT CCA: No occlusion, significant stenosis or dissection. RIGHT ICA: No occlusion, significant stenosis or dissection. LEFT CCA: No occlusion, significant stenosis or dissection. LEFT ICA: No occlusion, significant stenosis or dissection. RIGHT VERTEBRAL ARTERY: No occlusion, significant stenosis or dissection. LEFT VERTEBRAL ARTERY: No occlusion, significant stenosis or dissection. NECK SOFT TISSUES: Unremarkable. --CTA HEAD: --Anterior circulation: ICAs: No significant stenosis at the intracranial/visualized segments. ACAs: No significant stenosis at the visualized segments. ACOM: Present. MCAs: No significant stenosis at the visualized segments. --Posterior circulation: PCOMs: Not visualized. scientist propagator: origin of the posterior cerebral arteries bilaterally. BASILAR ARTERY: No significant stenosis. VERTEBRAL ARTERIES: No significant stenosis at the intradural/visualized segments. No evidence of intracranial aneurysm or vascular malformation. CT/CTA Head AND Neck W/ Contrast IMPRESSION: 1. No evidence of intracranial great vessel stenosis. 2. Unremarkable common and internal carotid arteries. 3. Patent bilateral vertebral arteries without evidence of stenosis or dissection. Electronically Signed: Antwan Vela MD at 14:31 EDT ,
--- NOTE | 2023-06-16 14:42 | EKG12_ITS ---
Test Reason : DISORIANTED Blood Pressure : / mmHG Vent. Rate : 063 BPM Atrial Rate : 063 BPM P-R Int : 138 ms QRS Dur : 074 ms QT Int : 406 ms P-R-T Axes : 031 038 012 degrees QTc Int : 415 ms Normal sinus rhythm Normal ECG Confirmed by ALTON WALKER, RUDY ([id number]), editor newspaper SRINIVAS VICKERS ([id number]) on 06/21/2023 11:24:52 AM Referred By: Confirmed By:CANDACE DANG MD
[2023-06-16 15:01] LABS: Absolute Lymphocyte Count 1.74 X10^3/uL (0.83-4.51); Absolute Neutrophil Count 4.6 X10^3/uL (2.0-7.7); Basophil# 0.05 X10^3/uL; Basophil% 0.7 % (0-1); Eosinophil# 0.23 X10^3/uL; Eosinophils% 3.1 % (0-5); Hematocrit 41.9 % (37-47); Hemoglobin 13.8 g/dL (12.0-15.0); Lymphocyte # 1.74 X10^3/ul (0.83-4.51); Lymphocyte % 23.5 % (19-41); Mean Corp Hgb Conc 32.9 g/dL (32-36); Mean Corpuscular Hgb 29.1 pg (27.0-32.0); Mean Corpuscular Volume 88.4 fL (81-99); Mean Platelet Vol. 10.4 fl (6.2-12.0); Monocyte# 0.78 X10^3/uL; Monocyte% 10.5 % (0-10); NRBC Flagged by Analyzer 0 % (0-5); Neutrophil # 4.58 X10^3/uL (2.7-7.7); Neutrophil % 61.8 % (47-70); Platelet Count 352 K/mm3 (150-450); RBC Distribution Width CV 13.7 % (11.6-14.6); RBC Distribution Width SD 44.2 fl (35.1-43.9); Red Blood Count 4.74 M/mm3 (4.2-5.4); White Blood Count 7.4 K/mm3 (4.4-11.0)
--- NOTE | 2023-06-16 15:01 | RAD_ITS ---
INDICATION: Cough EXAMINATION/TECHNIQUE: X-RAY - XR Chest 1 View COMPARISON: None. FINDINGS: LINES/DEVICES: None. LUNGS: No consolidation, edema or effusion. No pneumothorax. MEDIASTINUM AND CARDIOVASCULAR STRUCTURES: Cardiac silhouette not enlarged. Central airways and mediastinal contour are unremarkable. BONES AND SOFT TISSUES: Unremarkable. RAD/Chest 1 View (Portable) IMPRESSION: No radiographic evidence of acute cardiopulmonary disease. Electronically Signed: Antwan Vela MD at 15:49 EDT ,
[2023-06-16 15:13] LABS: International Normalized Ratio 0.9; Partial Thromboplast Time 30.2 Seconds (24.1-36.2); Prothrombin Time (Protime)PT. 12.3 SECONDS (11.7-14.9)
[2023-06-16 15:20] LABS: ALB/GLOB Ratio 1.1 RATIO (0.9-2.4); AST(SGOT) 22 U/L (15-37); Alanine Aminotransfer ALT/SGPT 53 U/L (13-56); Albumin, Serum 4.3 g/dL (3.2-5.0); Alkaline Phosphatase 107 U/L (45-117); Anion Gap 4 (5-15); BUN 12 mg/dL (7-18); BUN/Creat Ratio 15.3 RATIO (10-20); Chloride 104 mmol/L (98-107); Creatinine, Serum 0.78 mg/dL (0.55-1.02); EST Glomerular Filtration Rate 82 mL/min (>60); Est Glom Filt Rate - Afr Amer 99 mL/min (>60); Estimated Creatinine Clearance 69.79 ml/min; Glucose 89 mg/dL (74-106); Potassium 3.7 mmol/L (3.5-5.1); Protein, Total 8.3 g/dL (6.4-8.2); Sodium Level 138 mmol/L (136-145)
--- NOTE | 2023-06-16 15:59 | EX.ED.DYSGE1 ---
HPI History of Present Illness Chief Complaint: Confusion Informant: patient Onset/Context/Timing Onset: Today Context: Sudden Onset Timing: Intermittent Quality: Confusion, fatigue Location: Generalized Worsened by: Nothing Relieved by: Nothing Narrative Narrative: Patient presents with an episode of confusion that occurred today while she was at work. 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 Patient states that today when she was sitting at work and could not figure out what to do at her computer. Patient states she had an appoint with Dr. Berrios earlier this morning felt normal at that time. Patient states her symptoms began approximately 9:30 AM today. Patient states she felt tired and then felt confused. Currently, patient denies any confusion. Patient admits to a mild headache. Patient admits to some generalized tingling but denies any other paresthesias or weakness. Patient denies any visual changes. Patient denies any difficulty swallowing. Patient denies any chest pain or shortness of breath. Patient denies any nausea or vomiting. [facility] Medical History Acute otitis media, left Anxiety Anxiety and depression Back pain H/O Clostridium difficile infection Yomaira's thyroiditis Hemorrhoids Iatrogenic hyperthyroidism Kidney stone Knee pain Home Medications fluoxetine 40 mg capsule 60 mg PO DAILY 10/19/22 [History Last Taken Unknown] levonorgestrel 21 mcg/24 hours (8 yrs) 52 mg intrauterine device (Mirena) 1 device intrauterine ONCE 11/15/22 [History Last Taken Unknown] cholecalciferol (vitamin D3) 50 mcg (2,000 unit) capsule 50 mcg PO DAILY 06/10/23 [History Last Taken Unknown] cyclobenzaprine 10 mg tablet 10 mg PO TID PRN muscle spasm 06/10/23 [History Last Taken Unknown] Allergy/AdvReac Type Severity Reaction Status Date / Time No Known Allergies Allergy Verified 06/16/23 06:44 Family History (Updated 06/16/23 @ 06:51 by Nora Salinas) Father Heart disease Melanoma SUKHDEV (obstructive sleep apnea) Aunt Breast cancer Mother Depression Osteoporosis Surgical History right ankle surgery Social History household members: spouse and children number of children: 2 current occupational status: employed current occupation: [employer] Smoking Status: Never smoker alcohol intake: never substance use type: does not use caffeine: No what type of physical activity do you participate in: none seatbelt use: always do you feel safe at home: Yes additional social history: [place]- Works for [employer] Patient works at [employer] ROS ROS ED Constitutional Constitutional ED: Denies chills or fever(s) Eyes Eyes: Denies blurry vision or change in vision ENT ENT ED: Denies rhinorrhea or sore throat Cardiovascular Cardiovascular: Denies chest pain or palpitations Respiratory/Chest Respiratory/Chest: Denies cough or dyspnea Gastrointestinal Gastrointestinal: Denies nausea or vomiting Genitourinary Genitourinary ED: Denies dysuria or hematuria Musculoskeletal Musculoskeletal: Denies back pain or neck pain Integumentary Reports rash; Denies abscess Neurologic Neurologic: Reports headache(s); Denies weakness Allergic/Immunologic Allergic/Immunologic ED: Denies mouth swelling or urticaria EXAM Physical Exam Const Vital Signs: 06/16/23 13:36 06/16/23 15:40 06/16/23 17:03 Temperature 97.5 F L Temperature Source Temporal Pulse Rate 71 70 70 Respiratory Rate 15 12 14 Blood Pressure 143/96 H 138/89 H 147/97 H Blood Pressure Mean 111 105 113 Pulse Ox 98 95 97 Oxygen Delivery Method Room Air Room Air Room Air Positive well nourished and well developed General Appearance ED: well developed and NAD HEENT Reports moist mucous membranes Neck supple and no JVD Resp normal respiratory effort and clear to auscultation bilaterally Cardio regular rate, regular rhythm and no murmurs GI normal to inspection, nondistended, normoactive bowel sounds and non-tender Palpation: soft Extremity normal to inspection General Extremety ED: Negative for edema or tenderness General Extremity: Negative for edema Neuro oriented x3, CN's II-XII intact bilaterally and no sensory deficits noted Sensorium / Orientation: alert Motor Exam: strength 5/5 throughout Psych mental status grossly normal Skin no rashes or lesions noted MDM MDM MDM Narrative Medical decision making narrative: Differential diagnosis includes stroke, TIA, electrolyte abnormality, anemia, infection, and intracranial bleeding. CT scan of the brain will be obtained to assess for stroke and intracranial bleeding. CTA of the head and neck will be obtained to assess for large vessel occlusion. EKG will be obtained to assess for cardiac dysrhythmia and cardiac ischemia. Chest x-ray will be obtained to assess for pneumonia. CBC will be obtained to assess for leukocytosis and anemia. Comprehensive metabolic profile will be obtained to assess for hepatic function, renal function, and electrolyte abnormality. PT with INR and PTT will be obtained to assess for coagulopathy. Urinalysis will be obtained to assess for urinary tract infection. Lab Data Attestation: I reviewed the patient's lab results. Lab results narrative: CBC was reviewed and was within normal limits. Comprehensive metabolic profile was reviewed and was within normal limits. PT with INR and PTT were reviewed and were within normal limits. Urinalysis was reviewed. There is no evidence of urinary tract infection or hematuria. Labs: Laboratory Results - last 24 hr 06/16/23 06/16/23 13:57 16:16 WBC 7.4 RBC 4.74 Hgb 13.8 Hct 41.9 MCV 88.4 MCH 29.1 MCHC 32.9 RDW Std Deviation 44.2 H RDW Coeff of Myranda 13.7 Plt Count 352 MPV 10.4 Immature Gran % (Auto) 0.400 Neut % (Auto) 61.8 Lymph % (Auto) 23.5 [place] % (Auto) 10.5 H Eos % (Auto) 3.1 Baso % (Auto) 0.7 Absolute Neuts (auto) 4.6 Absolute Lymphs (auto) 1.74 Nucleated RBC % 0 PT 12.3 INR 0.9 APTT 30.2 Sodium 138 Potassium 3.7 Chloride 104 Carbon Dioxide 30.0 Anion Gap 4 L BUN 12 Creatinine 0.78 Estim Creat Clear Calc 69.79 Est GFR (MDRD) Af Amer 99 Est GFR (MDRD) Non-Af 82 BUN/Creatinine Ratio 15.3 Glucose 89 Calcium 10.0 Total Bilirubin 0.50 AST 22 ALT 53 Alkaline Phosphatase 107 Total Protein 8.3 H Albumin 4.3 Globulin 4.0 Albumin/Globulin Ratio 1.1 Urine Color Yellow Urine Clarity Clear Urine pH 7.0 Ur Specific High View 1.010 Urine Protein Negative Urine Glucose (UA) Normal Urine Ketones Negative Urine Occult Blood Negative Urine Nitrite Negative Urine Bilirubin Negative Urine Urobilinogen Normal Ur Leukocyte Esterase Negative Urine RBC 0 SEEN Urine WBC 0 SEEN Ur Squamous Epith Cells 0 SEEN Urine Bacteria 0 SEEN Urine Mucus 0 SEEN Radiography Chest X-Ray - ED: 1 View, Read by ED Physician, Read by Radiologist and No Acute Disease Diagnostic Testing: Clinical Impression(s) from Imaging Studies Brain CT 06/16/23 13:42 IMPRESSION: No acute intracranial process. Electronically Signed: Antwan Veal MD at 14:21 EDT , ADDENDUM: 06/16/23 1438 IMPRESSION: No acute intracranial process. N.B. : The above Results were Read Back by Antwan Vela MD to Isaac Acevedo MD, and understanding confirmed on 06/16/2023 14:31:54 (ET). Electronically Signed: Antwan Vela MD at 14:21 EDT , Head/Neck CTA 06/16/23 13:50 IMPRESSION: 1. No evidence of intracranial great vessel stenosis. 2. Unremarkable common and internal carotid arteries. 3. Patent bilateral vertebral arteries without evidence of stenosis or dissection. Electronically Signed: Antwan Vela MD at 14:31 EDT , Chest X-Ray 06/16/23 15:01 IMPRESSION: No radiographic evidence of acute cardiopulmonary disease. Electronically Signed: Antwan Vela MD at 15:49 EDT , Portable 1 view chest x-ray was obtained. On my independent interpretation, lung shel[place] are clear. There is normal cardiac silhouette. Bony thorax is normal. There is no acute process noted. Radiologist also interpreted the x-ray and agrees. CT scan of the brain was obtained. There is no acute intracranial abnormality. This was interpreted by the radiologist and was also independently reviewed by myself. CTA of the head and neck was obtained. There is no large vessel occlusion. There is no acute infarct. There is no evidence of carotid or vertebral stenosis. This was interpreted by the radiologist and was also independently reviewed by myself. EKG Initial EKG: Attestation: I personally reviewed and interpreted this EKG as follows: Interpretation: Sinus Rhythm (63) and No Acute Injury Pattern Comments: EKG was obtained. On my independent interpretation, it showed a normal sinus rhythm with a rate of 63. [place] interval, QRS interval, and QTc intervals were all normal. [place] was normal. There are no acute ST or T wave changes. Prior: Unchanged (06/19/2015) Management Discussion w/another healthcare provider: Hospitalist (Dr. Jackman) Treatment and Re-Evaluation :: Patient was advised of her findings. Patient is feeling better on reevaluation. Patient was advised that this could be a TIA. Patient was advised that she would need to be admitted for observation for further evaluation. Patient understands and is agreeable with the plan. Case was discussed with the hospitalist. She will admit the patient for observation. Discharge Plan Dx/Rx/DC Orders Clinical Impression: TIA (transient ischemic attack), Episode of confusion Disposition Disposition: Acute Care Hospital [facility]
[2023-06-16 16:23] LABS: Bacteria 0 SEEN /hpf (None Seen); Mucous, Urine 0 SEEN /hpf (<or=2+); Red Blood Cells-Urine 0 SEEN /hpf (0-5); Squamous Epithelial Cells - UA 0 SEEN /hpf (5-10); White Blood Cells 0 SEEN /hpf (0-5)
[2023-06-16 16:36] LABS: Color, Urine Yellow (Yellow); Glucose, Dipstick Normal (Normal); Ketone-Dipstick Negative (Negative); Leukocyte Esterase-Dipstick Negative /ul (Negative); Nitrite-Dipstick Negative (Negative); Occult Blood-Urine Negative /ul (Negative); Protein-Dipstick Negative (Negative); Urine Bilirubin Dipstick Negative (Negative); Urine Clarity Clear (Clear); Urine Urobilinogen Normal (Normal)
--- NOTE | 2023-06-16 17:29 | PCM.HP.STD ---
HPI - General General Date of Admission: 06/16/23 Date of Service: 06/16/23 Chief Complaint: Confusion, transient. HPI Narrative The patient is a 52 y/o F w/ PMHx: Obesity, C-diff, Anxiety and Depression, Hx Yomaira thyroiditis who presents to the [facility] ED on 06/16/23 with history of episode of confusion occurring while she was at work normally on the computer but unfortunately today while sitting there she could not figure out how to use her computer with symptoms beginning at 9:30 AM with increased fatigue and malaise at that time reporting that she felt as though she could have easily taken a nap as well as a mild headache with generalized body tingling but no focal findings and no visual changes or focal weakness eventually improving but given onset prompted ED evaluation. She describes her mild headache in the frontal bilateral region with occasional sharp throbbing which is intermittent rated 2-3 out of 10 in severity with no marked light or sound sensitivity. Work-up in the ED included T97.5, heart rate 143/96, respiratory rate 15, 98% room air, CBC with WBC 7.4, he 113.8, platelet 352 without marked shift, unremarkable coags, CMP unremarkable, urinalysis with no obvious evidence of UTI, CT of the head with no acute intracranial findings, CTA head and neck with no evidence of intracranial great vessel stenosis, unremarkable common and internal carotid arteries, patent bilateral vertebral arteries without evidence of stenosis or dissection, chest x-ray with no acute cardiopulmonary findings, EKG with sinus rhythm with no acute evidence of ischemia. [facility] Medical History (Updated 06/16/23 @ 17:[address] Sydney Jackman MD) Anxiety and depression Back pain H/O Clostridium difficile infection Yomaira's thyroiditis Hemorrhoids Kidney stone Knee pain Home Medications fluoxetine 40 mg capsule 60 mg PO DAILY 10/19/22 [History Last Taken Unknown] levonorgestrel 21 mcg/24 hours (8 yrs) 52 mg intrauterine device (Mirena) 1 device intrauterine ONCE 11/15/22 [History Last Taken Unknown] cholecalciferol (vitamin D3) 50 mcg (2,000 unit) capsule 50 mcg PO DAILY 06/10/23 [History Last Taken Unknown] cyclobenzaprine 10 mg tablet 10 mg PO TID PRN muscle spasm 06/10/23 [History Last Taken Unknown] Allergy/AdvReac Type Severity Reaction Status Date / Time No Known Allergies Allergy Verified 06/16/23 06:44 Family History Father Heart disease Melanoma SUKHDEV (obstructive sleep apnea) Aunt Breast cancer Mother Depression Osteoporosis Surgical History right ankle surgery Social History household members: spouse and children number of children: 2 current occupational status: employed current occupation: [employer] Smoking Status: Never smoker alcohol intake: never substance use type: does not use caffeine: No what type of physical activity do you participate in: none seatbelt use: always do you feel safe at home: Yes additional social history: [facility] Patient works at [employer] Narrative Admission Review of Systems: CONSTITUTIONAL: No weight loss, fever, chills, + weakness or fatigue. HEENT: + Headache. Eyes: No visual loss, blurred vision, double vision or yellow sclerae. Ears, Nose, Throat: No hearing loss, sneezing, congestion, runny nose or sore throat. SKIN: No rash or itching, lesions, wounds. CARDIOVASCULAR: No chest pain, chest pressure or chest discomfort, palpitations, edema, orthopnea, syncopal events. RESPIRATORY: No shortness of breath, cough or sputum, wheezing, hemoptysis. GASTROINTESTINAL: No anorexia, nausea, vomiting or diarrhea, abdominal pain, melena, BRBPR. GENITOURINARY: No dysuria, frequency, urgency or retention. NEUROLOGICAL: + Headache, transient confusion. No dizziness, syncope, paralysis, ataxia, numbness or tingling in the extremities, focal weakness, change in bowel or bladder control, seizure. MUSCULOSKELETAL: No muscle, back pain, joint pain or stiffness. HEMATOLOGIC: No anemia, bleeding or bruising. LYMPHATICS: No enlarged nodes. No history of splenectomy. PSYCHIATRIC: + history of depression or anxiety. ENDOCRINOLOGIC: No reports of sweating, cold or heat intolerance. No polyuria or polydipsia. ALLERGIES: No history of asthma, hives, eczema or rhinitis. Vital Signs Vital Signs Vital Signs: 06/16/23 13:36 06/16/23 15:40 09/21/23 17:03 Temperature 97.5 F L Temperature Source Temporal Pulse Rate 71 70 70 Respiratory Rate 15 12 14 Blood Pressure 143/96 H 138/89 H 147/97 H Blood Pressure Mean 111 105 113 Pulse Ox 98 95 97 Oxygen Delivery Method Room Air Room Air Room Air Weight Weight: 181 lb Body Mass Index (BMI) 32.1 Physical Exam Narrative Physical Examination: General: Awake, alert, oriented x 3 and cooperative, seated upright in the ED bed in no apparent distress, feels improved and returned to her baseline. Skin: Normal color, normal turgor, no icterus, no cyanosis. HEENT: AT/NC, EOMI, PERRLA, MMM, no carotid bruits or JVD noted. Lungs: CTA bilaterally, moderate effort, mild decrease BL bases, no rales, ronchi or wheezing. Heart: Regular rate and rhythm; no gallop, rub audible. Abdomen: Soft, obese, NTTP, ND, normal BS, no HSM. Extremities: No cyanosis, clubbing, or edema. Neurological: Patient awake, alert, oriented as noted, cognitive function intact; pupils equally reactive to light and accommodation, cranial nerves II-XII grossly normal, moving all 4 extremities, no focal deficits, strength preserved, sensation intact, finger-nose and [id number] appropriate, negative Babinski. Psychiatric: Affect appears fatigued otherwise normal, no acute evidence of depressive or anxiety feelings. Results Lab / Micro Data 06/16/23 13:57 06/16/23 13:57 Labs: Laboratory Results - last 24 hr 06/16/23 13:57: WBC 7.4, RBC 4.74, Hgb 13.8, Hct 41.9, MCV 88.4, MCH 29.1, MCHC 32.9, RDW Std Deviation 44.2 H, RDW Coeff of Myranda 13.7, Plt Count 352, MPV 10.4, Immature Gran % (Auto) 0.400, Neut % (Auto) 61.8, Lymph % (Auto) 23.5, Lucas % (Auto) 10.5 H, Eos % (Auto) 3.1, Baso % (Auto) 0.7, Absolute Neuts (auto) 4.6, Absolute Lymphs (auto) 1.74, Nucleated RBC % 0, PT 12.3, INR 0.9, APTT 30.2, Sodium 138, Potassium 3.7, Chloride 104, Carbon Dioxide 30.0, Anion Gap 4 L, BUN 12, Creatinine 0.78, Estim Creat Clear Calc 69.79, Est GFR (MDRD) Af Amer 99, Est GFR (MDRD) Non-Af 82, BUN/Creatinine Ratio 15.3, Glucose 89, Calcium 10.0, Total Bilirubin 0.50, AST 22, ALT 53, Alkaline Phosphatase 107, Total Protein 8.3 H, Albumin 4.3, Globulin 4.0, Albumin/Globulin Ratio 1.1 06/16/23 16:16: Urine Color Yellow, Urine Clarity Clear, Urine pH 7.0, Ur Specific [place] 1.010, Urine Protein Negative, Urine Glucose (UA) Normal, Urine Ketones Negative, Urine Occult Blood Negative, Urine Nitrite Negative, Urine Bilirubin Negative, Urine Urobilinogen Normal, Ur Leukocyte Esterase Negative, Urine RBC 0 SEEN, Urine WBC 0 SEEN, Ur Squamous Epith Cells 0 SEEN, Urine Bacteria 0 SEEN, Urine Mucus 0 SEEN Radiology Impression Brain CT 06/16/23 13:42 IMPRESSION: No acute intracranial process. Electronically Signed: Antwan Vela MD at 14:21 EDT , ADDENDUM: 06/16/23 1438 IMPRESSION: No acute intracranial process. N.B. : The above Results were Read Back by Antwan Vela MD to Isaac Acevedo MD, and understanding confirmed on 06/16/2023 14:31:54 (ET). Electronically Signed: Antwan Vela MD at 14:21 EDT , Head/Neck CTA 06/16/23 13:50 IMPRESSION: 1. No evidence of intracranial great vessel stenosis. 2. Unremarkable common and internal carotid arteries. 3. Patent bilateral vertebral arteries without evidence of stenosis or dissection. Electronically Signed: Antwan Vela MD at 14:31 EDT , Chest X-Ray 06/16/23 15:01 IMPRESSION: No radiographic evidence of acute cardiopulmonary disease. Electronically Signed: Antwan Vela MD at 15:49 EDT , Assessment & Plan Assessment/Plan (1) TIA (transient ischemic attack): PLAN: Plan The patient is a 52 y/o F w/ PMHx: Obesity, C-diff, Anxiety and Depression, Hx Yomaira thyroiditis who presents to the [facility] ED on 06/16/23 with history of episode of confusion occurring while she was at work normally on the computer but unfortunately today while sitting there she could not figure out how to use her computer with symptoms beginning at 9:30 AM with increased fatigue and malaise at that time as well as a mild headache with generalized body tingling but no focal findings and no visual changes or focal weakness eventually improving but given onset prompted ED evaluation. #1. Transient confusion concerning for TIA/CVA versus complex migraine: Will admit to PCU, will obtain MRI Brain, ECHO, PT/OT/Speech/Nutrition evaluation per protocol. Will allow permissive HTN, maintain on asa, add moderate dose statin w/ AM FLP, fall precautions. Mag, TSH, FLP, HgbA1c requested. Maintain on fall and aspiration precautions. UDS requested. Once work-up obtained low threshold to obtain Neurology consultation. COVID PCR requested. #2. Elevated BP without hypertensive diagnosis: No previous episodes of elevated blood pressure she notes, possibly stress response with #1, will continue monitor with permissive hypertension and as needed agents per stroke protocol however if MRI is negative or once appropriate if remains elevated will need to initiate oral regimen. #3. History Yomaira's thyroiditis: TSH and free T4 requested. #4. Anxiety and depression: We will continue patient home fluoxetine regimen. #5. Obesity: Weight loss and lifestyle changes encouraged. #6. DVT prophylaxis: Low risk given observation presentation. Charges/Coding Visit Charges Inpatient E&M: 92890 Init Hosp L2
--- NOTE | 2023-06-16 18:07 | NURSING ---
109 OBS WHITE TIA, CONFUSION EPISODE
[2023-06-16 18:41] LABS: Magnesium 2.5 mg/dL (1.6-2.6)
--- NOTE | 2023-06-16 18:51 | ECHOCS_ITS ---
Reason For Study: CVA Procedure This was a 2D Doppler, Color Flow transthoracic echocardiogram. The study was technically difficult. Contrast injection was performed. Exam performed portable in patient room. Left Ventricle Normal LV size. The estimated ejection fraction is 60 %. No evidence for diastolic dysfunction. No regional wall motion abnormalities noted. Right Ventricle Normal RV size. Normal systolic function. Atria Normal left atrium. Normal right atrium. No doppler evidence for ASD. Mitral Valve There is mild mitral annular calcification. There is no mitral valve stenosis. No mitral valve insufficiency. Tricuspid Valve There is no tricuspid stenosis. Trivial tricuspid valve insufficiency. Pulmonary artery systolic pressure is 20 mmHg. Aortic Valve There is no aortic stenosis. No aortic valve insufficiency. Pulmonic Valve There is no pulmonic valvular stenosis. No pulmonic valve insufficiency. Great Vessels Normal aortic root. Pericardium/Pleural No pericardial effusion. Medication Diluted definity 2ml given slow IV push to enhance endocardial definition. Performed a rapid injection of agitated mix of 9 cc saline and 1cc air to assess for atrial septal defect. MMode/2D Measurements & Calculations LVIDd: 4.6 cm IVSd: 0.91 cm Ao root diam: 3.1 cm LVIDs: 3.9 cm LVPWd: 1.1 cm FS: 15.3 % LAV(MOD-bp): 30.4 ml LVAd ap4: 30.7 cm2 SV(MOD-sp4): 57.5 ml LAV(MOD-bp) Indexed: 16.4 ml/m2 LVLd ap4: 7.9 cm LAV(MOD-sp2): 28.6 ml EDV(MOD-sp4): 100.0 ml LAV(MOD-sp4): 32.8 ml EDV(sp4-el): 101.8 ml LVAs ap4: 18.7 cm2 LVLs ap4: 7.1 cm ESV(MOD-sp4): 42.5 ml ESV(sp4-el): 41.8 ml EF(MOD-sp4): 57.5 % EF(sp4-el): 58.9 % SV(sp4-el): 59.9 ml LA A4 area: 14.4 cm2 LA dimension(2D): 3.4 cm RA A4 area: 14.1 cm2 TAPSE: 1.9 cm Time Measurements MV dec time: 0.18 sec Doppler Measurements & Calculations MV E max nicolas: 73.6 cm/sec Lat Peak E' Nicolas: 14.7 cm/sec Med Peak E' [place]: 11.3 cm/sec MV A max nicolas: 56.9 cm/sec E/E' lat: 5.0 E/E' med: 6.5 MV E/A: 1.3 MV V2 max: 74.6 cm/sec MV dec slope: 406.3 cm/sec2 PA V2 max: 71.7 cm/sec MV max P.2 mmHg PA V2 mean: 57.4 cm/sec MV V2 mean: 43.9 cm/sec MV mean P.86 mmHg MV V2 VTI: 24.6 cm ECHO/Echo Complete W/ Contrast Interpretation Summary The estimated ejection fraction is 60 %. No evidence for diastolic dysfunction. Ordering Physician: Sydney Jackman Referring Physician: Janell Penn Performed By: Felicity Bryson RCS
[2023-06-16 19:22] LABS: Amphetamine Urine VISTA NEGATIVE (<1000 ng/mL); Barbiturate Urine VISTA NEGATIVE (< 200 ng/mL); Benzodiazepine Urine VISTA NEGATIVE (< 200 ng/mL); Cocaine Urine VISTA NEGATIVE (< 300 ng/mL); Ecstacy Urine VISTA NEGATIVE (< 500 ng/mL); Methadone Urine VISTA NEGATIVE (< 300 ng/mL); PCP Urine VISTA NEGATIVE (< 25 ng/mL); THC Urine VISTA NEGATIVE (< 50 ng/mL); Vista UDS pH Range 6
[2023-06-16] MEDS: Acetaminophen 325 MG Tablet 650 MG PO (21:10)
[2023-06-16] MEDS: 0.9% Normal Saline (1000mL) 1,000 ML 100 ML IV (21:34)
[2023-06-17 02:00] VITALS: BP 99/65; PULSE 75; RESP 14; TEMP 37; O2SAT 97
[2023-06-17 06:00] VITALS: BP 102/70; PULSE 70; RESP 14; TEMP 36.7; O2SAT 97
[2023-06-17 06:15] LABS: Absolute Lymphocyte Count 1.51 X10^3/uL (0.83-4.51); Absolute Neutrophil Count 3.8 X10^3/uL (2.0-7.7); Basophil# 0.06 X10^3/uL; Basophil% 0.9 % (0-1); Eosinophil# 0.26 X10^3/uL; Hematocrit 39.7 % (37-47); Hemoglobin 12.8 g/dL (12.0-15.0); Lymphocyte # 1.51 X10^3/ul (0.83-4.51); Lymphocyte % 23.4 % (19-41); Mean Corp Hgb Conc 32.2 g/dL (32-36); Mean Platelet Vol. 10.3 fl (6.2-12.0); Monocyte# 0.83 X10^3/uL; Monocyte% 12.8 % (0-10); NRBC Flagged by Analyzer 0 % (0-5); Neutrophil # 3.77 X10^3/uL (2.7-7.7); Neutrophil % 58.4 % (47-70); Platelet Count 318 K/mm3 (150-450); RBC Distribution Width CV 13.7 % (11.6-14.6); RBC Distribution Width SD 44.9 fl (35.1-43.9); Red Blood Count 4.41 M/mm3 (4.2-5.4); White Blood Count 6.5 K/mm3 (4.4-11.0)
[2023-06-17 06:54] LABS: ALB/GLOB Ratio 0.9 RATIO (0.9-2.4); AST(SGOT) 24 U/L (15-37); Alanine Aminotransfer ALT/SGPT 47 U/L (13-56); Albumin, Serum 3.3 g/dL (3.2-5.0); Alkaline Phosphatase 104 U/L (45-117); Anion Gap 3 (5-15); BUN 14 mg/dL (7-18); BUN/Creat Ratio 16.5 RATIO (10-20); Calcium,Total 8.7 mg/dL (8.5-10.1); Chloride 109 mmol/L (98-107); Cholesterol 203 mg/dL (200); Creatinine, Serum 0.85 mg/dL (0.55-1.02); EST Glomerular Filtration Rate 75 mL/min (>60); Est Glom Filt Rate - Afr Amer 90 mL/min (>60); Estimated Creatinine Clearance 64.04 ml/min; Globulin 3.6 g/dL (2.2-4.2); Glucose 102 mg/dL (74-106); High Density Lipoprotein 42 mg/dL; Protein, Total 6.9 g/dL (6.4-8.2); Sodium Level 142 mmol/L (136-145); T4 Free Direct 0.77 ng/dL (0.76-1.46); Thyroid Stim Hormone (TSH) 2.47 uIU/mL (0.358-3.74); Triglycerides 152 mg/dL; Very Low Density Lipoprotein 30 mg/dL (5-40)
[2023-06-17 07:32] VITALS: O2SAT 97
[2023-06-17 07:49] LABS: Hemoglobin A1c 5.3 % (3.8-5.6)
[2023-06-17] MEDS: Aspirin 81 MG TAB.CHEW PO (08:29)
[2023-06-17] MEDS: FLUoxetine 20 MG Capsule 60 MG PO (08:29)
[2023-06-17] MEDS: Acetaminophen 325 MG Tablet 650 MG PO (08:29)
--- NOTE | 2023-06-17 08:38 | DCINST_ITS ---
Discharge Instructions Diet Discharge Diet: No restrictions Activity Discharge Activity: Return to Normal Activity Weight Bearing Status: Weight bearing as tolerated Dressing / Incision Call your doctor if you observe: Fever of 101 or Higher, Coldness, Increased Pain, Numbness or Tingling, Change in Color, Inability to urinate, Inability to have a bowel movement, Using more than 1 pad per hour, Shortness of breath, Dizziness, Fainting spells, Swelling in the ankles, Chest pain, Prolonged hiccupping, Increased palpitations (irregular heartbeat) and Calf discomfort Follow Up Care When: IN 2 WEEKS Test Results: Test results from this visit will be discussed in further detail at your follow- up appointment, if applicable. Discharge Plan Admission Admit Date/Time: 06/16/23 17:32 Primary Reason for Your Visit: Acute onset of confusion Attending Provider: Tc Allen Primary Care Provider: Janell Penn Consulting Providers: Sydney Jackman Discharge Orders/Prescriptions Prescriptions: New atorvastatin 40 mg tablet 40 mg PO QHS 30 Days Qty: 30 2RF Continued Mirena 21 mcg/24 hours (8 yrs) 52 mg intrauterine device 1 device intrauterine ONCE Rx Instructions: as a single dose cyclobenzaprine 10 mg tablet 10 mg PO TID PRN (Reason: muscle spasm) Hold Instructions: Pt has been DC'd Rx Instructions: 1/2-1 tablet cholecalciferol (vitamin D3) 50 mcg (2,000 unit) capsule 50 mcg PO DAILY fluoxetine 40 mg capsule 60 mg PO DAILY Patient Comments: TAKE 1 CAPSULE BY MOUTH ONCE DAILY Referrals / Follow Up: Janell Penn DO [Primary Care Provider] - Disposition Disposition (needs filled in before D/C Order can be placed): Home, Self Care
--- NOTE | 2023-06-17 09:00 | MRI_ITS ---
EXAM: MR HEAD WITHOUT INTRAVENOUS CONTRAST CLINICAL INDICATION: CVA, episode of confusion TECHNIQUE: Multiplanar and multisequence MR images of the brain were obtained without intravenous contrast. COMPARISON: CT brain 06/16/2023, MR Head dated 06/11/2015 FINDINGS: BRAIN AND EXTRA-AXIAL SPACES: Normal. No intra- or extra-axial hemorrhage. No evidence of acute infarct. No intracranial mass or mass effect. There is preservation of the morales/white matter interface. Posterior fossa structures are unremarkable. Ventricles are appropriate for age. No hydrocephalus. Basal cisterns are patent. SELLA: Normal. Normal sella turcica, pituitary gland, infundibular stalk, optic chiasm and hypothalamus. AUDITORY SYSTEM: Normal. The internal auditory canals are patent. BONES/JOINTS: Intact calvarium. SINUSES: Unremarkable as visualized. Clear. MASTOID AIR CELLS: Unremarkable as visualized. Clear. ORBITS: Unremarkable as visualized. Both globes, extraocular muscles, optic nerves and retrobulbar fat appear unremarkable. VASCULATURE: Unremarkable as visualized. Normal flow voids in the major intracranial circulation. MRI/Brain without Contrast IMPRESSION: Normal MRI brain without intravenous contrast. No interval change. Electronically Signed: Jeffrey Bronson MD at 10:51 EDT ,
[2023-06-17 10:14] VITALS: BP 130/79; PULSE 75; RESP 18; TEMP 36.8; O2SAT 95
[2023-06-17 10:41] VITALS: BMI 31.9
--- NOTE | 2023-06-17 11:53 | PCM.DC.SUM ---
Providers Date of Admission: 06/16/23 Date of Discharge: 06/17/23 Primary Care Physician: Dr. Janell Penn DO Reason For Visit: TRANSIENT CONFUSION Diagnosis Discharge Diagnosis (1) TIA (transient ischemic attack): Status: Acute Code(s): G45.9 - Transient cerebral ischemic attack, unspecified Plan This 52-year-old female was admitted with episode of confusion at her workplace while working on computer. She could not figure out how to use computer symptoms started at 9:30 AM with fatigue and malaise. She was admitted to PCU 1. Transient confusion possible complex migraine: Patient admitted to PCU. MRI brain was negative for infarct or acute intracranial abnormality. Her work-up was unremarkable with CT brain, head and neck CTA. She had mild headache during 1 week Arbor trace Tylenol. She might have history of migraine. TIA or acute stroke ruled out 2. Elevated BP without hypertensive diagnosis and dyslipidemia: Patient elevated ABPM or home BP monitoring to diagnose hypertension in consultation with PCP. She has elevated LDL 131 total cholesterol 203 therefore prescription for atorvastatin 40 g given. Repeat BP normal range 3. History of Yomaira's diagnosis: TSH and free T4 normal. 4. Anxiety and depression: We will continue patient home fluoxetine regimen. #5. Obesity: Weight loss and lifestyle changes encouraged. #6. DVT prophylaxis: Low risk. Ambulation encouraged Discharge medication reconciliation done. Discharge follow-up instructions completed. Discharge process discussed with the patient and all questions were answered to patient's satisfaction. Total time spent, exact 35 minutes on discharge meds reconciliation, examination, coordination of care with nurses and ancillary staff, review of imaging and blood test and discussion with the patient on follow-up instructions. Clinical Impression(s) from Imaging Studies Brain CT 06/16/23 13:42 IMPRESSION: No acute intracranial process. Head/Neck CTA 06/16/23 13:50 IMPRESSION: 1. No evidence of intracranial great vessel stenosis. 2. Unremarkable common and internal carotid arteries. 3. Patent bilateral vertebral arteries without evidence of stenosis or dissection. Chest X-Ray 06/16/23 15:01 IMPRESSION: No radiographic evidence of acute cardiopulmonary disease. Brain MRI 06/17/23 09:00 IMPRESSION: Normal MRI brain without intravenous contrast. No interval change. Medications at Discharge Home Medications fluoxetine 40 mg capsule 60 mg PO DAILY for depression 10/19/22 levonorgestrel 21 mcg/24 hours (8 yrs) 52 mg intrauterine device (Mirena) 1 device intrauterine ONCE 11/15/22 cholecalciferol (vitamin D3) 50 mcg (2,000 unit) capsule 50 mcg PO DAILY supplement 06/10/23 cyclobenzaprine 10 mg tablet 10 mg PO TID PRN muscle spasm 06/10/23 atorvastatin 40 mg tablet 40 mg PO QHS 30 days #30 tabs 06/17/23 Physical Exam Const Constitutional Narrative: Seen and examined. Patient had mild headache and got better with the Tylenol. No focal neurological symptoms. Physical exam General: Alert, Oriented x3, Cooperative obesity grade 1 BMI 32.0 kg/m? HEENT: Atraumatic, PERRLA, EOMI, Normocephalic. No photophobia Oral: No Gingival or Mucosal Lesions/ Ulcerations Neck: Supple, No JVD, Negative Carotid Bruits Lungs: Air entry diminished in bilateral lung bases. No crepitation/rhonchi Cardiovascular: Regular rate, Regular Rhythm, Normal S1, Normal S2, No murmurs Abdomen: Bowel Sounds Present, Soft, Non Tender, Non-Distended : No renal angle tenderness. No suprapubic tenderness. Extremities: No edema, Capillary Refill Less than 3 Seconds Skin: No rashes, No breakdown Musculoskeletal: No Tenderness to Palpation of Joints or Extremities Neurological: Cranial nerves II-XII grossly intact, DTR 2+/4. No acute focal neurological deficit. NIH stroke scale 0 Psych/Mental Status: Normal Affect, Appropriate. Weight / BMI Weight Weight: 180 lb 8.937 oz Body Mass Index (BMI) 31.9 ABG / Lab / Microbiology Data 06/17/23 05:19 06/17/23 05:19 Laboratory: Laboratory Results - last 24 hr 06/16/23 13:57: WBC 7.4, RBC 4.74, Hgb 13.8, Hct 41.9, MCV 88.4, MCH 29.1, MCHC 32.9, RDW Std Deviation 44.2 H, RDW Coeff of Myranda 13.7, Plt Count 352, MPV 10.4, Immature Gran % (Auto) 0.400, Neut % (Auto) 61.8, Lymph % (Auto) 23.5, Coffee % (Auto) 10.5 H, Eos % (Auto) 3.1, Baso % (Auto) 0.7, Absolute Neuts (auto) 4.6, Absolute Lymphs (auto) 1.74, Nucleated RBC % 0, PT 12.3, INR 0.9, APTT 30.2, Sodium 138, Potassium 3.7, Chloride 104, Carbon Dioxide 30.0, Anion Gap 4 L, BUN 12, Creatinine 0.78, Estim Creat Clear Calc 69.79, Est GFR (MDRD) Af Amer 99, Est GFR (MDRD) Non-Af 82, BUN/Creatinine Ratio 15.3, Glucose 89, Calcium 10.0, Magnesium 2.5, Total Bilirubin 0.50, AST 22, ALT 53, Alkaline Phosphatase 107, Total Protein 8.3 H, Albumin 4.3, Globulin 4.0, Albumin/Globulin Ratio 1.1 06/16/23 16:16: Urine Color Yellow, Urine Clarity Clear, Urine pH 7.0, Ur Specific [place] 1.010, Urine Protein Negative, Urine Glucose (UA) Normal, Urine Ketones Negative, Urine Occult Blood Negative, Urine Nitrite Negative, Urine Bilirubin Negative, Urine Urobilinogen Normal, Ur Leukocyte Esterase Negative, Urine RBC 0 SEEN, Urine WBC 0 SEEN, Ur Squamous Epith Cells 0 SEEN, Urine Bacteria 0 SEEN, Urine Mucus 0 SEEN, Urine Opiates Screen NEGATIVE, Urine Methadone Screen NEGATIVE, Ur Barbiturates Screen NEGATIVE, Ur Phencyclidine Scrn NEGATIVE, Ur Amphetamines Screen NEGATIVE, MDMA (Ecstasy) Screen NEGATIVE, U Benzodiazepines Scrn NEGATIVE, Urine Cocaine Screen NEGATIVE, U Cannabinoids Screen NEGATIVE, Ur Drug Screen Comment 06/17/23 05:19: WBC 6.5, RBC 4.41, Hgb 12.8, Hct 39.7, MCV 90.0, MCH 29.0, MCHC 32.2, RDW Std Deviation 44.9 H, RDW Coeff of Myranda 13.7, Plt Count 318, MPV 10.3, Immature Gran % (Auto) 0.500, Neut % (Auto) 58.4, Lymph % (Auto) 23.4, Coffee % (Auto) 12.8 H, Eos % (Auto) 4.0, Baso % (Auto) 0.9, Absolute Neuts (auto) 3.8, Absolute Lymphs (auto) 1.51, Nucleated RBC % 0, Sodium 142, Potassium 4.0, Chloride 109 H, Carbon Dioxide 30.0, Anion Gap 3 L, BUN 14, Creatinine 0.85, Estim Creat Clear Calc 64.04, Est GFR (MDRD) Af Amer 90, Est GFR (MDRD) Non-Af 75, BUN/Creatinine Ratio 16.5, Glucose 102, Hemoglobin A1c 5.3, Calcium 8.7, Total Bilirubin 0.20, AST 24, ALT 47, Alkaline Phosphatase 104, Total Protein 6.9, Albumin 3.3, Globulin 3.6, Albumin/Globulin Ratio 0.9, Triglycerides 152, Cholesterol 203 H, LDL Cholesterol 131 H, VLDL Cholesterol 30, HDL Cholesterol 42, TSH 2.47, Free T4 0.77 Microbiology: Microbiology 06/16/23 19:28 Mucosa - Nasopharyngeal Coronavirus COVID-19 PCR - Final Radiography Diagnostic Testing: Radiology Impression Brain CT 06/16/23 13:42 IMPRESSION: No acute intracranial process. Electronically Signed: Antwan Vela MD at 14:21 EDT Reading Location ID and State: [facility] / [place] Tel , Service support , ADDENDUM: 06/16/23 1438 IMPRESSION: No acute intracranial process. N.B. : The above Results were Read Back by Antwan Vela MD to Isaac Acevedo MD, and understanding confirmed on 06/16/2023 14:31:54 (ET). Electronically Signed: Antwan Vela MD at 14:21 EDT Reading Location ID and State: [facility] / [place] Tel , Service support , Head/Neck CTA 06/16/23 13:50 IMPRESSION: 1. No evidence of intracranial great vessel stenosis. 2. Unremarkable common and internal carotid arteries. 3. Patent bilateral vertebral arteries without evidence of stenosis or dissection. Electronically Signed: Antwan Vela MD at 14:31 EDT Reading Location ID and State: [facility] / [place] Tel , Service support , Chest X-Ray 06/16/23 15:01 IMPRESSION: No radiographic evidence of acute cardiopulmonary disease. Electronically Signed: Antwan Vela MD at 15:49 EDT , Brain MRI 06/17/23 09:00 IMPRESSION: Normal MRI brain without intravenous contrast. No interval change. Electronically Signed: Jeffrey Bronson MD at 10:51 EDT , D/C Instructions Discharge Diet: No restrictions Weight Bearing Status: Weight bearing as tolerated Call your doctor if you observe: Fever of 101 or Higher, Coldness, Increased Pain, Numbness or Tingling, Change in Color, Inability to urinate, Inability to have a bowel movement, Using more than 1 pad per hour, Shortness of breath, Dizziness, Fainting spells, Swelling in the ankles, Chest pain, Prolonged hiccupping, Increased palpitations (irregular heartbeat) and Calf discomfort When: IN 2 WEEKS Meaningful Use Info Meaningful Use Diagnoses (Choose all that apply): None applicable Discharge Plan Admission Admit Date/Time: 06/16/23 17:32 Primary Reason for Your Visit: Acute onset of confusion Attending Provider: Tc Allen Primary Care Provider: Janell Penn Consulting Providers: Sydney Jackman Discharge Orders/Prescriptions Prescriptions: New atorvastatin 40 mg tablet 40 mg PO QHS 30 Days Qty: 30 2RF Continued Mirena 21 mcg/24 hours (8 yrs) 52 mg intrauterine device 1 device intrauterine ONCE Rx Instructions: as a single dose cyclobenzaprine 10 mg tablet 10 mg PO TID PRN (Reason: muscle spasm) Hold Instructions: Pt has been DC'd Rx Instructions: 09/27-1 tablet cholecalciferol (vitamin D3) 50 mcg (2,000 unit) capsule 50 mcg PO DAILY fluoxetine 40 mg capsule 60 mg PO DAILY Patient Comments: TAKE 1 CAPSULE BY MOUTH ONCE DAILY Referrals / Follow Up: Janell Penn DO [Primary Care Provider] - Disposition Disposition (needs filled in before D/C Order can be placed): Home, Self Care Charges/Coding Visit Charges Inpatient E&M: 21455 Disch Hosp >30min
--- NOTE | 2023-06-17 12:20 | PHA.DC.MC.R ---
Pharmacy [facility] has performed discharge medication reconciliation and counseling for this patient. The patient's discharge medication list was reviewed for discrepancies and discrepancies were resolved. The patient was counseled on the following discharge medications and changes in medications for homegoing were reviewed. The Reason for Use, instructions for use, and potential side effects were reviewed for all new medications. The patient's questions regarding all of their medications were answered. 1. Atorvastatin 40 mg PO daily The patient was able to verbally demonstrate an understanding of their discharge medications. Medications at Discharge Home Medications fluoxetine 40 mg capsule 60 mg PO DAILY for depression 10/19/22 levonorgestrel 21 mcg/24 hours (8 yrs) 52 mg intrauterine device (Mirena) 1 device intrauterine ONCE 11/15/22 cholecalciferol (vitamin D3) 50 mcg (2,000 unit) capsule 50 mcg PO DAILY supplement 06/10/23 cyclobenzaprine 10 mg tablet 10 mg PO TID PRN muscle spasm 06/10/23 atorvastatin 40 mg tablet 40 mg PO QHS 30 days #30 tabs 06/17/23
== END 2023-06-17 11:50 | disposition home or self-care (01) ==
LOC: ED 17:03 → PCU 17:49
PROVIDERS: Admitting Provider Family Medicine; Emergency Provider Emergency Medicine; PCP Family Medicine; Visit Provider Internal Medicine
DX: R41.0 Disorientation, unspecified (principal); E06.3 Autoimmune thyroiditis; Z79.899 Other long term (current) drug therapy; E66.9 Obesity, unspecified; R53.81 Other malaise; R53.83 Other fatigue; Z68.32 Body mass index [BMI] 32.0-32.9, adult; F41.9 Anxiety disorder, unspecified; F32.A Depression, unspecified; R03.0 Elevated blood-pressure reading, without diagnosis of hypertension; E78.5 Hyperlipidemia, unspecified
CPT/HCPCS: 36415; 70450; 70496; 70498; 70551; 71045; 80053; 80061; 80307; 81001; 83036; 83735; 84439; 84443; 85025; 85610; 85730; 87635; 92610; 93005; 93306; 96360; 96361; 99221; 99285; J7030; Q9957; A4216; C8929; G0378

== ENCOUNTER → 2023-07-05 | Outpatient (CLI) | payer OTHER, SELFPAY | END | disposition home or self-care (01) | PROVIDERS: PCP Family Medicine; Referring Provider Internal Medicine Critical Care Medicine; Visit Provider Internal Medicine Critical Care Medicine | DX: G47.10 Hypersomnia, unspecified (principal); F41.9 Anxiety disorder, unspecified | CPT/HCPCS: 95806 ==

== ENCOUNTER → 2024-02-14 | Outpatient (CLI) | payer OTHER, SELFPAY ==
[2024-02-21 13:07] LABS: HPV APTIMA, High Risk Negative (Negative)
== END | disposition home or self-care (01) ==
LOC: LABSPEC 10:41
PROVIDERS: PCP Family Medicine; Referring Provider Nurse Practitioner Women's Health; Visit Provider Nurse Practitioner Women's Health
DX: Z12.4 Encounter for screening for malignant neoplasm of cervix (principal)
CPT/HCPCS: 87624; 88175; G0145

== ENCOUNTER → 2025-01-12 | Outpatient (CLI) | payer OTHER, SELFPAY ==
[2025-01-12 09:09] LABS: Absolute Lymphocyte Count 1.73 X10^3/uL (0.83-4.51); Absolute Neutrophil Count 5.8 X10^3/uL (2.0-7.7); Basophil# 0.04 X10^3/uL; Basophil% 0.5 % (0-1); Eosinophil# 0.11 X10^3/uL; Eosinophils% 1.3 % (0-5); Hematocrit 41.8 % (37-47); Hemoglobin 13.5 g/dL (12.0-15.0); Lymphocyte # 1.73 X10^3/ul (0.83-4.51); Lymphocyte % 20.7 % (19-41); Mean Corp Hgb Conc 32.3 g/dL (32-36); Mean Corpuscular Hgb 28.4 pg (27.0-32.0); Mean Platelet Vol. 10.9 fl (6.2-12.0); Monocyte% 7.2 % (0-10); NRBC Flagged by Analyzer 0 % (0-5); Neutrophil # 5.83 X10^3/uL (2.7-7.7); Neutrophil % 69.7 % (47-70); Platelet Count 288 K/mm3 (150-450); RBC Distribution Width CV 13.4 % (11.6-14.6); RBC Distribution Width SD 43.6 fl (35.1-43.9); Red Blood Count 4.75 M/mm3 (4.2-5.4); White Blood Count 8.4 K/mm3 (4.4-11.0)
[2025-01-12 12:36] LABS: Cholesterol 259 mg/dL (<=200); High Density Lipoprotein 49 mg/dL; Low Density Lipoprotein Calc. 167 mg/dL; Triglycerides 215 mg/dL; Very Low Density Lipoprotein 43 mg/dL (5-40); cholesterol:hdl ratio screen 5.25
[2025-01-12 13:54] LABS: ALB/GLOB Ratio 1.4 RATIO (0.9-2.4); AST(SGOT) 28 U/L (<=31); Alanine Aminotransfer ALT/SGPT 54 U/L (<=34); Albumin, Serum 4.5 g/dL (3.5-5.0); Alkaline Phosphatase 93 U/L (35-104); Anion Gap 13 (5-15); BUN 17 mg/dL (4-19); BUN/Creat Ratio 22.3 RATIO (10-20); Calcium,Total 9.6 mg/dL (7.6-11.0); Carbon Dioxide 22.6 mmol/L (21.0-32.0); Chloride 104 mmol/L (98-108); Creatinine, Serum 0.75 mg/dL (0.70-1.20); EST Glomerular Filtration Rate 95 (>60); Globulin 3.1 g/dL (2.2-4.2); Glucose 93 mg/dL (70-99); Iron 103 ug/dL (50-170); Potassium 4.3 mmol/L (3.3-5.1); Protein, Total 7.7 g/dL (5.9-8.4); Sodium Level 139 mmol/L (133-145); Total Bilirubin 0.35 mg/dL (0.00-1.30)
[2025-01-12 13:55] LABS: Estradiol < 5.0 pg/mL; Free T3 2.9 pg/mL (2.18-3.98); Vitamin B12 636 pg/mL (180-914)
[2025-01-13 07:07] LABS: PROGESTERONE 0.2 ng/mL (.)
== END | disposition home or self-care (01) ==
LOC: LAB 08:25
PROVIDERS: PCP Family Medicine; Referring Provider Family Medicine; Visit Provider Family Medicine
DX: E78.5 Hyperlipidemia, unspecified (principal); R53.83 Other fatigue; E55.9 Vitamin D deficiency, unspecified; Z51.81 Encounter for therapeutic drug level monitoring; N93.8 Other specified abnormal uterine and vaginal bleeding; R23.3 Spontaneous ecchymoses; D64.9 Anemia, unspecified
CPT/HCPCS: 36415; 80053; 80061; 82306; 82607; 82627; 82670; 83540; 84144; 84402; 84403; 84439; 84443; 84481; 85025; 82626

== ENCOUNTER → 2025-03-05 | Outpatient (CLI) | payer OTHER, SELFPAY ==
--- NOTE | 2025-03-05 16:16 | BI_ITS ---
EXAM: SCRN MAMM (CAD)W/THEA BILAT DATE: 03/05/2025 CLINICAL HISTORY: F, Age 54 y/o , SCREENING BREAST CANCER RISK ASSESSMENT: N/A TECHNIQUE: Bilateral screening digital breast tomosynthesis with 2D and 3D images. Computer aided detection. COMPARISON: Prior exam(s) were compared FINDINGS: TISSUE DENSITY: The breast tissue is heterogenously dense, which may obscure small masses. Bilateral Breast Mammographic Findings: No suspicious masses, calcifications or other abnormalities are identified. BI/SCRN MAMM (CAD)W/THEA BILAT IMPRESSION: OVERALL FINAL ASSESSMENT: BIRADS 1 NEGATIVE RECOMMENDATION: Routine annual follow-up in 1 Year A letter with findings and recommendations will be mailed to the patient. Reading Location: [id number]
== END | disposition home or self-care (01) ==
LOC: OPBI 16:15
PROVIDERS: PCP Family Medicine; Referring Provider Family Medicine; Visit Provider Family Medicine
DX: Z12.31 Encounter for screening mammogram for malignant neoplasm of breast (principal)
CPT/HCPCS: 77063; 77067